=== PATIENT | female | born 1995 | race Caucasian/White ===

== ENCOUNTER 2017-05-18 08:00 | Outpatient (CLI) | payer OTHER | END 2017-05-18 23:59 | disposition home or self-care (01) | LOC: LAB.R 08:00 | PROVIDERS: ATTEND Registered Nurse | DX: Z11.3 Encounter for screening for infections with a predominantly sexual mode of transmission (principal) | CPT/HCPCS: 87491; 87591 ==

== ENCOUNTER 2017-05-24 07:47 | Outpatient (CLI) | payer OTHER ==
--- NOTE | 2017-05-25 13:04 | Ultrasound Report ---
OB ULTRASOUND: 05/24/2017 CLINICAL INDICATION: anatomy. TECHNIQUE: Real-time scanning was performed with inside sales representative static images obtained. LAST MENSTRUAL PERIOD 01/03/2017 Clinical Age 20 weeks 1 day US Age 20 weeks 5 days EFW Hadlock 361 grams EFW% Hadlock 68% Heart Rate 144 bpm EDC 10/10/2017 US EDC 10/06/2017 BPD Hadlock 20 weeks 6 days; Mean mm 49 HC Hadlock 20 weeks 5 days; Mean mm 183 AC Hadlock 20 weeks 3 days; Mean mm 152 FL Hadlock 20 weeks 4 days; Mean mm 44 Presentation cephalic Placental Location posterior R Cervical Length TA 4.4 cm Amniotic Fluid subjectively normal; MVP 4.3 cm FINDINGS: There is a single viable intrauterine gestation, in cephalic presentation. heart rate is 144 BPM. The placenta is posterior, without evidence of previa. Amniotic fluid volume is subjectively normal, with a deepest pocket of 4.3 cm. By size, the fetus measures 20 weeks 5 days (20 weeks 1 day by LMP). The following anatomic structures were visualized and appear normal: The intracranial contents, including the ventricles and posterior fossa; the lips and orbits; the spine; the heart, including 4 chamber view and outflow tracts, and diaphragm; the abdominal contents, including the stomach, the bilateral kidneys, and urinary bladder, as well as a normal 3 vessel cord insertion; 4 limbs. Note is made of bilateral renal pelviectasis, measuring 6 mm on the right and 5 mm on the left. No free fluid or adnexal lesion is appreciated. IMPRESSION: SINGLE VIABLE INTRAUTERINE GESTATION, WITH SIZE IN KEEPING WITH LMP DATING. BILATERAL RENAL PELVIECTASIS. FOLLOWUP IN THE THIRD TRIMESTER IS RECOMMENDED. OTHERWISE, NORMAL ANATOMIC SURVEY. TD: 05/24/2017 11:59 [facility]
== END 2017-05-24 07:48 | disposition home or self-care (01) ==
LOC: DI 07:47
PROVIDERS: ATTEND Registered Nurse
DX: Z34.82 Encounter for supervision of other normal pregnancy, second trimester (principal); O28.3 Abnormal ultrasonic finding on antenatal screening of mother
CPT/HCPCS: 76811

== ENCOUNTER 2017-06-03 07:57 | Outpatient (CLI) | payer OTHER ==
[2017-06-03 08:24] VITALS: BP 102/57
== END 2017-06-03 08:44 | disposition home or self-care (01) ==
LOC: WFO 07:57 → FBP 07:59 → WFO 08:44
PROVIDERS: ATTEND Obstetrics & Gynecology
DX: O36.8120 Decreased fetal movements, second trimester, not applicable or unspecified (principal); Z3A.20 20 weeks gestation of pregnancy
CPT/HCPCS: 99211

== ENCOUNTER 2017-06-04 12:30 | Outpatient (CLI) | payer OTHER | END 2017-06-04 12:31 | disposition home or self-care (01) | LOC: LAB.R 12:30 | PROVIDERS: ATTEND Registered Nurse | DX: O34.62 Maternal care for abnormality of vagina, second trimester (principal) | CPT/HCPCS: 87480; 87491; 87510; 87591; 87660 ==

== ENCOUNTER 2017-06-15 15:00 | Outpatient (CLI) | payer OTHER | END 2017-06-15 15:01 | LOC: LAB.R 15:00 | PROVIDERS: ATTEND Nurse Practitioner Obstetrics & Gynecology | DX: N89.8 Other specified noninflammatory disorders of vagina (principal) | CPT/HCPCS: 87480; 87510; 87660 ==

== ENCOUNTER 2017-06-16 04:27 | Emergency (ER) | payer OTHER ==
[2017-06-16] MEDS ORDERED: SODIUM CHLORIDE 0.9% 1,000 ML IV ONE (05:11)
[2017-06-16] MEDS ORDERED: PROMETHAZINE INJ 25 MG in SODIUM CHLORIDE 0.9% 50 ML IV STA (05:11)
--- NOTE | 2017-06-16 05:16 | ED Physician Documentation ---
PD HPI NVD - Stated complaint Stated Complaint: VOMITING/DIARRHEA - Chief complaint Chief Complaint: General - History obtained from History obtained from: Patient - History of Present Illness Timing - onset: Enter time (99), Today Timing - duration: Hours Timing - details: Abrupt onset, Still present Associated symptoms: No: Abdominal pain Contributing factors: Bad food Improved by: Laying still Similar symptoms before: Diagnosis (hyperemesis) Recently seen: Clinic - Additonal information Additional information: 22-year-old female who is getting routine care and is 23 weeks with her first has had improvement in her morning sickness and she is now developed nausea and vomiting as well as diarrhea. She feels this is probably related to something that she ate but she cannot specifically describe which food she believes may be the culprit. She remembers last eating steak and mashed potatoes. Review of Systems Constitutional: denies: Fever, Chills, Myalgias, Fatigue Eyes: denies: Decreased vision Ears: denies: Ear pain Nose: denies: Rhinorrhea / runny nose, Congestion Throat: denies: Sore throat Cardiac: denies: Chest pain / pressure, Palpitations Respiratory: denies: Dyspnea, Cough GI: reports: Nausea, Vomiting, Diarrhea. denies: Abdominal Pain : denies: Dysuria, Frequency Skin: denies: Rash Musculoskeletal: denies: Neck pain, Back pain, Extremity pain Neurologic: denies: Generalized weakness, Focal weakness, Numbness PD PAST MEDICAL HISTORY - Past Medical History Past Medical History: No - Past Surgical History Past Surgical History: Yes General: Other - Present Medications Home Medications: Ambulatory Orders Medication Instructions Recorded Confirmed Promethazine [Phenergan] 25 - 50 mg PO Q6H PRN #10 tab 06/16/17 - Allergies Allergies/Adverse Reactions: Allergies Allergy/AdvReac Type Severity Reaction Status Date / Time No Known Drug Allergies Allergy Verified 06/16/17 04:40 - Social History Does the pt smoke?: No Smoking Status: Never smoker Does the pt drink ETOH?: No Does the pt have substance abuse?: No - Immunizations Immunizations are current?: Yes - POLST Patient has POLST: No PD ED PE NORMAL - Vitals Vital signs reviewed: Yes (Normal) - General General: Alert and oriented X 3, No acute distress, Well developed/nourished - HEENT HEENT: Atraumatic, PERRL, EOMI - Neck Neck: Supple, no meningeal sign, No bony TTP - Cardiac Cardiac: RRR, No murmur - Respiratory Respiratory: No respiratory distress, Clear bilaterally - Abdomen Abdomen: Soft, Non tender, Other (Gravid uterus above the umbilicus nontender) - Back Back: No CVA TTP, No spinal TTP - Derm Derm: Normal color, Warm and dry, No rash - Extremities Extremities: No deformity, No edema - Neuro Neuro: No motor deficit, No sensory deficit, Normal speech Eye Opening: Spontaneous Motor: Obeys Commands Verbal: Oriented GCS Score: 15 - Psych Psych: Normal mood, Normal affect Results - Vitals Vitals: Oxygen O2 Source Room air - Labs Labs: Laboratory Tests 06/16/17 06/16/17 06/16/17 05:25 05:25 08:54 WBC 15.2 H RBC 3.95 L Hgb 11.7 L Hct 36.0 L MCV 91.1 MCH 29.7 MCHC 32.6 RDW 13.9 Plt Count 178 MPV 10.2 Neut # 13.2 H Lymph # 1.3 L [place] # 0.6 Eos # 0.0 Baso # 0.0 Absolute Nucleated RBC 0.01 Nucleated RBC % 0.0 Sodium 133 L Potassium 3.6 Chloride 107 Carbon Dioxide 20 L Anion Gap 6.0 BUN 7 Creatinine 0.5 Estimated GFR (MDRD) 185 Glucose 90 Calcium 8.5 Total Bilirubin 0.4 AST 29 ALT 24 Alkaline Phosphatase 49 Total Protein 7.2 Albumin 3.2 Globulin 4.0 Albumin/Globulin Ratio 0.8 L Lipase 18 L Urine Color YELLOW Urine Clarity CLEAR Urine pH 8.0 H Ur Specific [place] 1.015 Urine Protein NEGATIVE Urine Glucose (UA) NEGATIVE Urine Ketones NEGATIVE Urine Occult Blood NEGATIVE Urine Nitrite NEGATIVE Urine Bilirubin NEGATIVE Urine Urobilinogen 0.2 (NORMAL) Ur Leukocyte Esterase NEGATIVE Ur Microscopic Review NOT INDICATED Urine Culture Comments NOT INDICATED Procedures - Bedside sono Bedside sono by EMP: With use of bedside ultrasound a castillo fetus with biparietal diameter correlating with 22 weeks 6 days gestation has a heart rate of 156 bpm. - IVC sono (time) 0510 Bedside IVC sono: IVC measures (cm) (1.27), IVC collapsed c insp (cm) (complete) , Dehydration (mild est 1 liter deficit) PD MEDICAL DECISION MAKING - ED course Complexity details: reviewed old records, reviewed results, re-evaluated patient , considered differential, d/w patient Departure - Departure Disposition: 01 Home, Self Care Clinical Impression: Gastroenteritis Condition: Stable Instructions: ED Gastroenteritis Non Infec, ED Gastroenteritis Viral Follow-Up: JUNIT[facility] Napoles [Provider Group] Prescriptions: Promethazine [Phenergan] 25 - 50 mg PO Q6H PRN #10 tab PRN Reason: Nausea / Vomiting Forms: Activity restrictions Discharge Date/Time: 06/16/17 09:51
[2017-06-16 05:46] LABS: BASOPHILS % (AUTO) 0.3 %; EOSINOPHILS % (AUTO) 0.1 %; HGB - HEMOGLOBIN 11.7 g/dL (12.0-16.0); LYMPHOCYTES # (AUTO) 1.3 10^3/uL (1.5-3.5); LYMPHOCYTES % (AUTO) 8.9 %; MEAN CORPUSCULAR HEMOGLOBIN 29.7 pg (27.0-31.0); MEAN CORPUSCULAR HGB CONC 32.6 g/dL (32.0-36.0); MEAN CORPUSCULAR VOLUME 91.1 fL (81.0-99.0); MEAN PLATELET VOLUME 10.2 fL (7.9-10.8); MONOCYTES # (AUTO) 0.6 10^3/uL (0.0-1.0); MONOCYTES % (AUTO) 3.8 %; NEUTROPHILS # (AUTO) 13.2 10^3/uL (1.5-6.6); NEUTROPHILS % (AUTO) 86.9 %; PLT - PLATELET COUNT 178 10^3/uL (130-450); RED BLOOD COUNT 3.95 10^6/uL (4.20-5.40); RED CELL DISTRIBUTION WIDTH 13.9 % (12.0-15.0); WHITE BLOOD COUNT 15.2 x10^3/uL (4.8-10.8)
[2017-06-16 06:05] LABS: ALBUMIN 3.2 g/dL (3.2-5.5); ALBUMIN/GLOBULIN RATIO 0.8 (1.0-2.2); BILIRUBIN,TOTAL 0.4 mg/dL (0.2-1.0); CALCIUM 8.5 mg/dL (8.5-10.3); CREATININE 0.5 mg/dL (0.4-1.0); TOTAL PROTEIN 7.2 g/dL (6.7-8.2)
[2017-06-16 09:09] LABS: BILIRUBIN,URINE NEGATIVE (NEGATIVE); GLUCOSE, URINE (UA) NEGATIVE (NEGATIVE); KETONES,URINE (UA) NEGATIVE (NEGATIVE); LEUKOCYTE ESTERASE, URINE NEGATIVE (NEGATIVE); NITRITE,URINE NEGATIVE (NEGATIVE); OCCULT BLOOD,URINE NEGATIVE (NEGATIVE); PROTEIN,URINE NEGATIVE (NEGATIVE); UROBILINOGEN,URINE 0.2 (NORMAL) E.U./dL (NORMAL)
[2017-06-16 09:10] LABS: CLARITY,URINE CLEAR (CLEAR)
[2017-06-16 09:43] VITALS: BP 108/63
--- NOTE | 2017-06-16 09:44 | ED Physician Documentation ---
ED Addendum - Addendum Addendum: 06/16/17 09:43 pt seen and evaluated by Dr Paul and was written for dc if UA neg UA neg pt requested note for work which i provided
== END 2017-06-16 09:51 | disposition home or self-care (01) ==
LOC: ED 04:27
DX: O99.612 Diseases of the digestive system complicating pregnancy, second trimester (principal); K52.9 Noninfective gastroenteritis and colitis, unspecified; Z3A.23 23 weeks gestation of pregnancy
CPT/HCPCS: 36415; 80053; 81003; 83690; 85025; 96361; 96365; 99283; J7040; 81001; 87086

== ENCOUNTER 2017-06-17 13:35 | Emergency (ER) | payer OTHER ==
[2017-06-17] MEDS ORDERED: ONDANSETRON 4 MG/2 ML VIAL IVP STA (15:06)
[2017-06-17] MEDS ORDERED: SODIUM CHLORIDE 0.9% 1,000 ML IV ONE (15:06)
[2017-06-17 15:37] LABS: BASOPHILS # (AUTO) 0.1 10^3/uL (0.0-0.1); BASOPHILS % (AUTO) 0.5 %; EOSINOPHILS # (AUTO) 0.1 10^3/uL (0.0-0.7); EOSINOPHILS % (AUTO) 0.4 %; LYMPHOCYTES # (AUTO) 1.2 10^3/uL (1.5-3.5); LYMPHOCYTES % (AUTO) 9.6 %; MEAN CORPUSCULAR HEMOGLOBIN 30.5 pg (27.0-31.0); MEAN CORPUSCULAR VOLUME 92.4 fL (81.0-99.0); MEAN PLATELET VOLUME 9.9 fL (7.9-10.8); MONOCYTES # (AUTO) 0.6 10^3/uL (0.0-1.0); MONOCYTES % (AUTO) 5.1 %; NEUTROPHILS # (AUTO) 10.7 10^3/uL (1.5-6.6); NEUTROPHILS % (AUTO) 84.4 %; PLT - PLATELET COUNT 172 10^3/uL (130-450); RED BLOOD COUNT 3.92 10^6/uL (4.20-5.40); RED CELL DISTRIBUTION WIDTH 14.1 % (12.0-15.0); WHITE BLOOD COUNT 12.7 x10^3/uL (4.8-10.8)
[2017-06-17 15:59] LABS: ALBUMIN 3.1 g/dL (3.2-5.5); ALBUMIN/GLOBULIN RATIO 0.8 (1.0-2.2); BILIRUBIN,TOTAL 0.3 mg/dL (0.2-1.0); CREATININE 0.5 mg/dL (0.4-1.0)
[2017-06-17 16:16] VITALS: BP 112/64
[2017-06-17 16:21] LABS: BILIRUBIN,URINE NEGATIVE (NEGATIVE); GLUCOSE, URINE (UA) NEGATIVE (NEGATIVE); KETONES,URINE (UA) TRACE mg/dL (NEGATIVE); LEUKOCYTE ESTERASE, URINE NEGATIVE (NEGATIVE); NITRITE,URINE NEGATIVE (NEGATIVE); OCCULT BLOOD,URINE NEGATIVE (NEGATIVE); PH,URINE 5.5 PH (5.0-7.5); PROTEIN,URINE NEGATIVE (NEGATIVE); UROBILINOGEN,URINE 0.2 (NORMAL) E.U./dL (NORMAL)
[2017-06-17 16:22] LABS: CLARITY,URINE CLEAR (CLEAR)
--- NOTE | 2017-06-17 17:09 | ED Physician Documentation ---
PD HPI NVD - Stated complaint Stated Complaint: VOMITTING,DIARRHEA - Chief complaint Chief Complaint: Abd Pain - History obtained from History obtained from: Patient - History of Present Illness Timing - onset: Yesterday Timing - details: Intermittant Contributing factors: Other ( at 23 weeks gestation.) Recently seen: Emergency Dept (Yesterday.) - Additonal information Additional information: The patient is a 22-year-old female, currently at 23 weeks gestation, who presents with vomiting and diarrhea. Her symptoms started yesterday, and she was seen here at that time and treated with IV fluids and antiemetics, and was diagnosed with gastroenteritis. She returns today because of recurrent symptoms. She denies abdominal pain, fever, dysuria, or vaginal bleeding. She denies any recent travel or food that has been different from usual. No other family members are ill. Review of Systems Constitutional: denies: Fever Ears: denies: Tinnitus/ringing Nose: denies: Congestion Throat: denies: Sore throat Cardiac: denies: Chest pain / pressure Respiratory: denies: Dyspnea, Cough GI: reports: Vomiting, Diarrhea. denies: Abdominal Pain : reports: Now EGA (23 weeks gestation.). denies: Dysuria, Vaginal bleeding Skin: denies: Rash Musculoskeletal: denies: Back pain, Extremity swelling Neurologic: denies: Headache PD PAST MEDICAL HISTORY - Past Medical History Cardiovascular: None Respiratory: None Neuro: None Endocrine/Autoimmune: None - Past Surgical History Past Surgical History: Yes General: Other - Present Medications Home Medications: Ambulatory Orders Medication Instructions Recorded Confirmed Promethazine [Phenergan] 25 - 50 mg PO Q6H PRN #10 tab 06/16/17 - Allergies Allergies/Adverse Reactions: Allergies Allergy/AdvReac Type Severity Reaction Status Date / Time No Known Drug Allergies Allergy Verified 06/16/17 04:40 - Social History Does the pt smoke?: No Smoking Status: Never smoker Does the pt drink ETOH?: No Does the pt have substance abuse?: No - Immunizations Immunizations are current?: Yes - POLST Patient has POLST: No PD ED PE NORMAL - Vitals Vital signs reviewed: Yes (normal) - General General: Alert and oriented X 3, Well developed/nourished - HEENT HEENT: Atraumatic, Moist mucous membranes, Pharynx benign - Neck Neck: Supple, no meningeal sign, No adenopathy - Cardiac Cardiac: RRR, No murmur - Respiratory Respiratory: No respiratory distress, Clear bilaterally - Abdomen Abdomen: Soft, Non tender, Other (Gravid uterus with fundal height consistent with dates.) - Back Back: No CVA TTP - Derm Derm: No rash - Extremities Extremities: No edema, No calf tenderness / cord - Neuro Neuro: Alert and oriented X 3, No motor deficit, No sensory deficit Results - Vitals Vitals: Oxygen O2 Source Room air - Labs Labs: Laboratory Tests 06/17/17 06/17/17 06/17/17 14:25 15:20 15:20 WBC 12.7 H RBC 3.92 L Hgb 12.0 Hct 36.2 L MCV 92.4 MCH 30.5 MCHC 33.0 RDW 14.1 Plt Count 172 MPV 9.9 Neut # 10.7 H Lymph # 1.2 L [place] # 0.6 Eos # 0.1 Baso # 0.1 Absolute Nucleated RBC 0.00 Nucleated RBC % 0.0 Sodium 134 L Potassium 3.4 L Chloride 105 Carbon Dioxide 22 Anion Gap 7.0 BUN 7 Creatinine 0.5 Estimated GFR (MDRD) 185 Glucose 91 Calcium 9.0 Total Bilirubin 0.3 AST 26 ALT 28 Alkaline Phosphatase 53 Total Protein 7.0 Albumin 3.1 L Globulin 3.9 Albumin/Globulin Ratio 0.8 L Lipase 24 Urine Color YELLOW Urine Clarity CLEAR Urine pH 5.5 Ur Specific [place] 1.025 Urine Protein NEGATIVE Urine Glucose (UA) NEGATIVE Urine Ketones [place]ACE Urine Occult Blood NEGATIVE Urine Nitrite NEGATIVE Urine Bilirubin NEGATIVE Urine Urobilinogen 0.2 (NORMAL) Ur Leukocyte Esterase NEGATIVE Ur Microscopic Review NOT INDICATED Urine Culture Comments NOT INDICATED PD MEDICAL DECISION MAKING - ED course Complexity details: reviewed old records, reviewed results, re-evaluated patient , considered differential, d/w patient ED course: The patient's presentation is most consistent with gastroenteritis, most likely of a viral etiology. She has no abdominal pain or tenderness, no fever, and no dysuria. CBC, chemistry panel, and urinalysis are normal except for mildly elevated white blood cell count of 12.7, which is improved from white blood cell count yesterday of 15.2. Treatment in the emergency department included administration of normal saline 1 L IV, and ondansetron 4 mg IV. She had no further episodes of vomiting or diarrhea while in the emergency department, and felt subjectively improved. She demonstrated ability to drink fluids without recurrent nausea. She has a prescription for Phenergan was written yesterday. I discussed with her symptomatic treatment, outpatient follow-up, as well as potentially worrisome signs or symptoms that should prompt reevaluation in the emergency department. Departure - Departure Disposition: 01 Home, Self Care Clinical Impression: Gastroenteritis Vomiting Qualifiers: Vomiting type: unspecified Vomiting Intractability: non-intractable Nausea presence: with nausea Qualified Code(s): R11.2 - Nausea with vomiting, unspecified Diarrhea Qualifiers: Diarrhea type: unspecified type Qualified Code(s): R19.7 - Diarrhea, unspecified Qualifiers: Weeks of gestation: 23 weeks Qualified Code(s): Z3A.23 - 23 weeks gestation of Condition: Stable Instructions: ED Gastroenteritis Viral Follow-Up: JUNITO Napoles [Provider Group] Comments: Drink plenty of fluids. Use Phenergan as previously prescribed if needed for nausea. Follow up with your pre owned sales manager as planned. Return to the emergency department if you develop increasing abdominal pain, persistent vomiting, or otherwise worsening symptoms. Forms: Activity restrictions Discharge Date/Time: 06/17/17 17:16
== END 2017-06-17 17:16 | disposition home or self-care (01) ==
LOC: ED 13:35
DX: O99.612 Diseases of the digestive system complicating pregnancy, second trimester (principal); K52.9 Noninfective gastroenteritis and colitis, unspecified; Z3A.23 23 weeks gestation of pregnancy
CPT/HCPCS: 36415; 80053; 81001; 81003; 83690; 85025; 87086; 96361; 96374; 99283; 99284

== ENCOUNTER 2017-07-09 04:00 | Outpatient (CLI) | payer OTHER ==
[2017-07-09 04:23] VITALS: BP 118/81
== END 2017-07-09 04:30 | disposition other institution (70) ==
LOC: WFO 04:00 → FBP 04:01 → WFO 04:30
PROVIDERS: ATTEND Obstetrics & Gynecology
DX: O99.89 Other specified diseases and conditions complicating pregnancy, childbirth and the puerperium (principal); R06.02 Shortness of breath; R00.1 Bradycardia, unspecified; O36.8120 Decreased fetal movements, second trimester, not applicable or unspecified; Z3A.25 25 weeks gestation of pregnancy
CPT/HCPCS: 99212

== ENCOUNTER 2017-07-09 04:32 | Emergency (ER) | payer OTHER ==
[2017-07-09] MEDS ORDERED: SODIUM CHLORIDE INHALATION 3 ML NEB INH STA (04:51)
--- NOTE | 2017-07-09 05:23 | ED Physician Documentation ---
PD HPI DYSPNEA - Stated complaint Stated Complaint: SOA - Chief complaint Chief Complaint: Resp - History obtained from History obtained from: Patient - History of Present Illness Timing - onset: How many weeks ago (1) Timing - onset during: Sleep, Rest, Light activity, Exertion Timing - details: Intermittant, Waxing and waning Worsened by: Exertion, Laying flat Associated symptoms: No: Fever, Cough, Hemoptysis, Wheezing, Chest pain / discomfort, Bilateral edema Similar symptoms before: Has not had sx before Recently seen: Not recently seen - Additional information Additional information: Patient is a 22 year old approximately 26 weeks by dates who is presenting to the emergency department for shortness of breath. patient states that for the last week or so patient will intermittently get short of breath with exertion or sometimes when she lies down. Patient denies nausea, vomiting fevers, cough, chest pain, wheezing, vaginal bleeding or vaginal discharge. Patient was evaluated by ob prior to being seen in the emergency department. Review of Systems Ten Systems: 10 systems reviewed and negative Cardiac: denies: Chest pain / pressure, Palpitations, Pedal edema, Calf pain Respiratory: reports: Dyspnea. denies: Cough, Hemoptysis, Wheezing PD PAST MEDICAL HISTORY - Past Medical History Past Medical History: No Cardiovascular: None Respiratory: None Neuro: None Endocrine/Autoimmune: None - Past Surgical History Past Surgical History: Yes General: Other - Present Medications Home Medications: Ambulatory Orders Medication Instructions Recorded Confirmed Pnv95/Ferrous Fumarate/FA 1 tab PO DAILY 07/09/17 07/09/17 [ Formula Tablet] - Allergies Allergies/Adverse Reactions: Allergies Allergy/AdvReac Type Severity Reaction Status Date / Time No Known Drug Allergies Allergy Verified 07/09/17 04:36 - Social History Does the pt smoke?: No Smoking Status: Never smoker Does the pt drink ETOH?: No Does the pt have substance abuse?: No - Immunizations Immunizations are current?: Yes - POLST Patient has POLST: No PD ED PE NORMAL - Vitals Vital signs reviewed: Yes - General General: Alert and oriented X 3, No acute distress - HEENT HEENT: Atraumatic, PERRL - Neck Neck: Supple, no meningeal sign, No JVD - Cardiac Cardiac: RRR, No murmur - Respiratory Respiratory: No respiratory distress, Clear bilaterally - Derm Derm: Normal color, Warm and dry - Extremities Extremities: No deformity, No calf tenderness / cord - Neuro Neuro: Alert and oriented X 3 Eye Opening: Spontaneous Motor: Obeys Commands Verbal: Oriented GCS Score: 15 - Psych Psych: Normal mood Results - Vitals Vitals: Vital Signs - 24 hr 07/09/17 07/09/17 04:34 05:01 Temperature 36.3 C L Heart Rate 91 65 Respiratory 18 12 Rate Blood Pressure 114/75 O2 Saturation 100 Oxygen O2 Source Room air PD MEDICAL DECISION MAKING - ED course Complexity details: reviewed old records, re-evaluated patient, considered differential, d/w patient ED course: Patient was seen and examined at bedside. Patient was well appearing and in no acute distress. patient was treated with a saline nebulizer with mild relief. A discussion was had with the patient concerning imaging and treatment. Patient 's symptoms were likely secondary to smaller long volumes as patient was well appearing with normal vital signs and in no distress. It was decided to hold off on imaging at this time. patient was given detailed discharge and follow up instructions and was stable for discharge with outpatient follow up. Departure - Departure Disposition: 01 Home, Self Care Clinical Impression: , Dyspnea Condition: Good Instructions: ED Dyspnea Shortness of Breath Follow-Up: primary,care provider [Other] - Within 3 Days Comments: Your symptoms are likely a side effect of your . You will have smaller lung volumes as your fetus gets larger. You can try sleeping propped up some pillows. You should follow up with your doctor if the symptoms persist. You may return to the emergency department at any time for new, worsening or uncontrollable symptoms. Forms: Activity restrictions
[2017-07-09 05:49] VITALS: BP 124/71
== END 2017-07-09 05:49 | disposition home or self-care (01) ==
LOC: ED 04:32
DX: O99.512 Diseases of the respiratory system complicating pregnancy, second trimester (principal); R06.02 Shortness of breath; Z3A.26 26 weeks gestation of pregnancy
CPT/HCPCS: 94640; 99283

== ENCOUNTER 2017-07-14 22:01 | Emergency (ER) | payer OTHER ==
[2017-07-14 22:14] VITALS: BP 111/70
[2017-07-14] MEDS ORDERED: BUFFERED LIDOCAINE 10 ML SYRINGE SUBQ STA (22:26)
--- NOTE | 2017-07-14 22:27 | ED Physician Documentation ---
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 cut the dorsum of her dominant, right index finger while opening a food can at home just prior to arrival.) Review of Systems Constitutional: reports: Reviewed and negative Cardiac: reports: Reviewed and negative Respiratory: reports: Reviewed and negative PD PAST MEDICAL HISTORY - Past Medical History Cardiovascular: None Respiratory: None Endocrine/Autoimmune: None - Past Surgical History Past Surgical History: Yes General: Other - Present Medications Home Medications: Ambulatory Orders Medication Instructions Recorded Confirmed Pnv95/Ferrous Fumarate/FA 1 tab PO DAILY 07/09/17 07/09/17 [ Formula Tablet] - Allergies Allergies/Adverse Reactions: Allergies Allergy/AdvReac Type Severity Reaction Status Date / Time No Known Drug Allergies Allergy Verified 07/14/17 22:14 - Social History Does the pt smoke?: No Smoking Status: Never smoker Does the pt drink ETOH?: No Does the pt have substance abuse?: No - Immunizations Immunizations are current?: Yes - POLST Patient has POLST: No PD ED PE NORMAL - Vitals Vital signs reviewed: Yes - General General: Alert and oriented X 3, No acute distress - Cardiac Cardiac: Other (regularly irregular with extrasystoles.) - Extremities Extremities: Other (On the dorsum of the right index finger at the level of the DIP there is a 1 cm oval like but mostly horizontal laceration with normal distal neurovascular status.) - Neuro Neuro: Alert and oriented X 3, Normal speech Results - Vitals Vitals: Vital Signs - 24 hr 07/14/17 07/14/17 22:10 22:59 Temperature 36.0 C L Heart Rate 84 47 L Respiratory 18 16 Rate Blood Pressure 111/70 O2 Saturation 99 98 Oxygen O2 Source Room air - EKG (time done) 2257 Rate: Rate (enter#) (87) Rhythm: NSR (with q4th beat PVCs) [place]: Normal Intervals: Normal [place] QRS: Normal Ischemia: Normal ST segments Computer interpretation: Agree with computer Procedures - Laceration (location) R 2nd finger Length in cm: 1 Wound type: Linear Neurovascular status: Sensory intact, Motor intact, Vascular intact Anesthesia: Lidocaine 1%, With bicarb Wound Preparation: Betadine, Irrigated copiously NS Skin layer closure: Nylon, Interrupted, Size #-0 - enter number (5-0), Sutures - enter # (3) Other: Patient tolerated well, No complications, Neurovascular intact, Tetanus UTD Complexity: Simple PD MEDICAL DECISION MAKING - ED course ED course: 22-year-old with laceration to the index finger. This was sutured and tetanus is up-to-date. She had ancillary complaint of ongoing dyspnea and palpitations and on examination she certainly has a lot of ectopy corroborated by EKG. Case discussed by phone with on-call OB, Dr. Alysha Kilgore and we agree this is probably a benign process. Departure - Departure Disposition: 01 Home, Self Care Clinical Impression: Finger laceration Condition: Good Record reviewed to determine appropriate education?: Yes Instructions: ED Laceration Hand Comments: Come back for any signs of infection which would include: Redness, swelling, drainage, increased pain, or fevers. Follow-up with your physician in 10-14 days for suture removal.
== END 2017-07-14 23:30 | disposition home or self-care (01) ==
LOC: ED 22:01
DX: S61.210A Laceration without foreign body of right index finger without damage to nail, initial encounter (principal); W26.8XXA Contact with other sharp object(s), not elsewhere classified, initial encounter; I49.49 Other premature depolarization
CPT/HCPCS: 12001; 93005; 99283; 99284

== ENCOUNTER 2017-07-16 07:21 | Outpatient (CLI) | payer OTHER ==
[2017-07-16 07:51] VITALS: BP 125/81
== END 2017-07-16 09:40 | disposition home or self-care (01) ==
LOC: WFO 07:21 → FBP 07:22 → WFO 09:40
PROVIDERS: ATTEND Nurse Practitioner Obstetrics & Gynecology
DX: O47.03 False labor before 37 completed weeks of gestation, third trimester (principal); Z3A.26 26 weeks gestation of pregnancy
CPT/HCPCS: 99212

== ENCOUNTER 2017-07-18 17:32 | Outpatient (CLI) | payer OTHER ==
[2017-07-18 17:52] LABS: BASOPHILS # (AUTO) 0.1 10^3/uL (0.0-0.1); BASOPHILS % (AUTO) 0.4 %; EOSINOPHILS # (AUTO) 0.1 10^3/uL (0.0-0.7); EOSINOPHILS % (AUTO) 0.8 %; HGB - HEMOGLOBIN 11.8 g/dL (12.0-16.0); LYMPHOCYTES # (AUTO) 1.4 10^3/uL (1.5-3.5); LYMPHOCYTES % (AUTO) 10.1 %; MEAN CORPUSCULAR HEMOGLOBIN 30.6 pg (27.0-31.0); MEAN CORPUSCULAR HGB CONC 33.2 g/dL (32.0-36.0); MEAN CORPUSCULAR VOLUME 92.2 fL (81.0-99.0); MEAN PLATELET VOLUME 9.8 fL (7.9-10.8); MONOCYTES # (AUTO) 0.8 10^3/uL (0.0-1.0); MONOCYTES % (AUTO) 5.9 %; NEUTROPHILS # (AUTO) 11.6 10^3/uL (1.5-6.6); NEUTROPHILS % (AUTO) 82.8 %; PLT - PLATELET COUNT 190 10^3/uL (130-450); RED BLOOD COUNT 3.86 10^6/uL (4.20-5.40); WHITE BLOOD COUNT 14.1 x10^3/uL (4.8-10.8)
== END 2017-07-18 17:33 | disposition home or self-care (01) ==
LOC: LAB 17:32
PROVIDERS: ATTEND Registered Nurse
DX: Z34.82 Encounter for supervision of other normal pregnancy, second trimester (principal)
CPT/HCPCS: 36415; 85025; 86850

== ENCOUNTER 2017-07-23 08:38 | Outpatient (CLI) | payer OTHER | END 2017-07-23 08:39 | disposition home or self-care (01) | LOC: LAB 08:38 | PROVIDERS: ATTEND Registered Nurse | DX: Z34.82 Encounter for supervision of other normal pregnancy, second trimester (principal) | CPT/HCPCS: 36415; 82950 ==

== ENCOUNTER 2017-07-27 08:00 | Outpatient (CLI) | payer OTHER | END 2017-07-27 08:01 | disposition home or self-care (01) | LOC: LAB.R 08:00 | PROVIDERS: ATTEND Nurse Practitioner Obstetrics & Gynecology | DX: N89.8 Other specified noninflammatory disorders of vagina (principal) | CPT/HCPCS: 87480; 87510; 87660 ==

== ENCOUNTER 2017-07-29 08:19 | Outpatient (CLI) | payer OTHER ==
[2017-07-29 09:19] VITALS: BP 117/70
== END 2017-07-29 09:15 | disposition home or self-care (01) ==
LOC: WFO 08:19 → FBP 08:21 → WFO 09:15
PROVIDERS: ATTEND Registered Nurse
DX: O36.8190 Decreased fetal movements, unspecified trimester, not applicable or unspecified (principal)
CPT/HCPCS: 99211

== ENCOUNTER 2017-08-02 13:09 | Outpatient (CLI) | payer OTHER ==
[2017-08-02 13:40] VITALS: BP 117/76
[2017-08-02 13:52] LABS: BILIRUBIN,URINE NEGATIVE (NEGATIVE); GLUCOSE, URINE (UA) NEGATIVE (NEGATIVE); KETONES,URINE (UA) NEGATIVE (NEGATIVE); LEUKOCYTE ESTERASE, URINE NEGATIVE (NEGATIVE); NITRITE,URINE NEGATIVE (NEGATIVE); OCCULT BLOOD,URINE NEGATIVE (NEGATIVE); PROTEIN,URINE NEGATIVE (NEGATIVE); UROBILINOGEN,URINE 0.2 (NORMAL) E.U./dL (NORMAL)
[2017-08-02 13:53] LABS: CLARITY,URINE CLEAR (CLEAR)
== END 2017-08-02 13:55 | disposition home or self-care (01) ==
LOC: WFO 13:09 → FBP 13:11 → WFO 13:55
PROVIDERS: ATTEND Registered Nurse
DX: O36.8130 Decreased fetal movements, third trimester, not applicable or unspecified (principal); Z3A.29 29 weeks gestation of pregnancy
CPT/HCPCS: 59025; 81001; 81003; 87086

== ENCOUNTER 2017-08-02 13:58 | Emergency (ER) | payer OTHER ==
--- NOTE | 2017-08-02 14:12 | ED Physician Documentation ---
PD HPI WOUND RECHECK - Stated complaint Stated Complaint: STITCH REMOVAL - Histroy obtained from History obtained from: Patient - History of Present Illness Location: Other (She is about 20 days out from a suture repair of the laceration on the right index finger without complication and she is here simply for suture removal. She has no specific complaints or signs of infection.) PD PAST MEDICAL HISTORY - Past Medical History Cardiovascular: None Respiratory: None Endocrine/Autoimmune: None - Past Surgical History Past Surgical History: Yes General: Other - Present Medications Home Medications: Ambulatory Orders Medication Instructions Recorded Confirmed Pnv95/Ferrous Fumarate/FA 1 tab PO DAILY 07/09/17 07/09/17 [ Formula Tablet] - Allergies Allergies/Adverse Reactions: Allergies Allergy/AdvReac Type Severity Reaction Status Date / Time No Known Drug Allergies Allergy Verified 08/02/17 14:10 - Social History Does the pt smoke?: No Smoking Status: Never smoker Does the pt drink ETOH?: No Does the pt have substance abuse?: No - Immunizations Immunizations are current?: Yes - POLST Patient has POLST: No PD ED PE NORMAL - Vitals Vital signs reviewed: Yes - General General: Alert and oriented X 3, No acute distress - Extremities Extremities: Other (There is a 1 cm laceration over the dorsum of the right index finger the level of the DIP with [address] and removed during exam without issue. Good strength and extension.) - Neuro Neuro: Alert and oriented X 3, Normal speech Results - Vitals Vitals: Oxygen O2 Source Room air Departure - Departure Disposition: 01 Home, Self Care Clinical Impression: Visit for suture removal Condition: Stable
[2017-08-02 14:13] VITALS: BP 118/77
== END 2017-08-02 14:14 | disposition home or self-care (01) ==
LOC: ED 13:58
DX: S61.210D Laceration without foreign body of right index finger without damage to nail, subsequent encounter (principal); W45.8XXD Other foreign body or object entering through skin, subsequent encounter; O36.8131 Decreased fetal movements, third trimester, fetus 1; Z3A.29 29 weeks gestation of pregnancy
CPT/HCPCS: 59025; 81001; 81003; 87086; 99281; 99282

== ENCOUNTER 2017-08-03 08:00 | Outpatient (CLI) | payer OTHER | END 2017-08-03 08:01 | disposition home or self-care (01) | LOC: LAB.R 08:00 | PROVIDERS: ATTEND Nurse Practitioner Obstetrics & Gynecology | DX: R82.99 Other abnormal findings in urine (principal) | CPT/HCPCS: 87086 ==

== ENCOUNTER 2017-08-23 09:05 | Outpatient (CLI) | END 2017-08-23 09:06 | disposition home or self-care (01) ==

== ENCOUNTER 2017-09-05 20:56 | Outpatient (CLI) | payer OTHER ==
[2017-09-05 21:38] VITALS: BP 110/70
== END 2017-09-05 22:00 | disposition home or self-care (01) ==
LOC: WFO 20:56 → FBP 21:20 → WFO 22:00
PROVIDERS: ATTEND Registered Nurse
DX: O47.03 False labor before 37 completed weeks of gestation, third trimester (principal); Z3A.34 34 weeks gestation of pregnancy
CPT/HCPCS: 99212

== ENCOUNTER 2017-09-13 10:12 | Outpatient (CLI) | payer OTHER ==
--- NOTE | 2017-09-13 16:19 | Ultrasound Report ---
Procedure Date: 09/13/2017 Accession Number: [id number] / [id number] Procedure: US - OB F/U or Repeat CPT Code: FULL RESULT: EXAM: OB F/U or Repeat DATE: 09/13/2017 12:51 PM CLINICAL HISTORY: ABNORMAL US FINDING ON SCREENING OF MOTH TECHNIQUE: Real-time scanning was performed with health and safety representative static images obtained. COMPARISON: None LAST MENSTRUAL PERIOD: 01/03/2017 Clinical Age: 36 weeks 5 days US Age: 37 weeks 1 days EFW Hadlock: 2912 grams EFW % Hadlock: 44% Heart Rate: 148 bpm EDC: 10/06/2017 US EDC: 10/03/2017 BPD Hadlock: 38 weeks 1 days; Mean mm 94 HC Hadlock: 38 weeks 6 days; Mean mm 338 AC Hadlock: 35 weeks 5 days; Mean mm 318 FL Hadlock: 36 weeks 0 days; Mean mm 70 Presentation: Cephalic Placental Location: Posterior Cervical Length: 3.8 cm Amniotic Fluid: JOEY 10.6 cm; MVP 4.1 cm FINDINGS: There is a single viable intrauterine gestation with a posterior placenta in cephalic presentation without evidence of previa. Today's ultrasound age is 37 weeks and 1 day compared to previous measurements of 34 weeks and 3 days on 08/23/2017. IMPRESSION: Single viable intrauterine gestation with sonographic age of 37 weeks and 1 day compared to a previous sonographic age of 34 weeks and 3 days on 08/23/2017.
== END 2017-09-13 10:13 | disposition home or self-care (01) ==
LOC: DI 10:12
PROVIDERS: ATTEND Nurse Practitioner Obstetrics & Gynecology
DX: O28.3 Abnormal ultrasonic finding on antenatal screening of mother (principal)
CPT/HCPCS: 76816

== ENCOUNTER 2017-09-21 08:00 | Outpatient (CLI) | payer OTHER | END 2017-09-21 08:01 | disposition home or self-care (01) | LOC: LAB.R 08:00 | PROVIDERS: ATTEND Registered Nurse | DX: Z34.83 Encounter for supervision of other normal pregnancy, third trimester (principal) | CPT/HCPCS: 87081 ==

== ENCOUNTER 2017-09-24 06:59 | Outpatient (CLI) | payer OTHER ==
[2017-09-24 07:19] VITALS: BP 126/74
== END 2017-09-24 07:35 | disposition home or self-care (01) ==
LOC: WFO 06:59 → FBP 07:00 → WFO 07:35
PROVIDERS: ATTEND Nurse Practitioner Obstetrics & Gynecology
DX: O9A.213 Injury, poisoning and certain other consequences of external causes complicating pregnancy, third trimester (principal); Z3A.36 36 weeks gestation of pregnancy
CPT/HCPCS: 99213

== ENCOUNTER 2017-09-24 07:38 | Emergency (ER) | payer OTHER ==
[2017-09-24 07:53] VITALS: BP 128/60
[2017-09-24] MEDS ORDERED: ACETAMINOPHEN 325 MG TABLET PO STA (09:30)
--- NOTE | 2017-09-24 09:32 | ED Physician Documentation ---
PD HPI LOWER EXT INJURY - Stated complaint Stated Complaint: KNEE PX/BOTH KNEES - Chief complaint Chief Complaint: Ext Problem - History obtained from History obtained from: Patient - History of Present Illness PD HPI LOW EXT INJURY LOCATION: Both, Knee Type of injury: Fall Where injury occurred: Home Timing - onset: Last night Worsened by: Moving, Palpating Contributing factors: Other ( at 36 weeks gestation.) Similar symptoms before: Has not had sx before - Additional information Additional information: The patient is a 22-year-old female who is currently at 36 weeks gestation, who presents with pain in both knees. She fell while walking up the stairs in her house last night, impacting her knees on the step. She initially did not have any discomfort, and has been ambulatory since the incident occurred. She presents now because of pain in the infrapatellar regions of both knees. She denies any other injuries. She was evaluated in OB prior to coming to the emergency department, and had a normal OB evaluation. Review of Systems Constitutional: denies: Fever Nose: denies: Congestion Cardiac: denies: Chest pain / pressure Respiratory: denies: Dyspnea GI: denies: Abdominal Pain, Nausea, Vomiting : denies: Dysuria Skin: denies: Rash, Abrasion (s) Musculoskeletal: reports: Joint pain (knees bilaterally). denies: Neck pain, Back pain Neurologic: denies: Focal weakness, Numbness, Headache, Head injury PD PAST MEDICAL HISTORY - Past Medical History Cardiovascular: None Respiratory: None Endocrine/Autoimmune: None - Past Surgical History Past Surgical History: Yes General: Other - Present Medications Home Medications: Ambulatory Orders Medication Instructions Recorded Confirmed Pnv95/Ferrous Fumarate/FA 1 tab PO DAILY 07/09/17 09/24/17 [ Formula Tablet] - Allergies Allergies/Adverse Reactions: Allergies Allergy/AdvReac Type Severity Reaction Status Date / Time No Known Drug Allergies Allergy Verified 09/24/17 07:53 - Social History Does the pt smoke?: No Smoking Status: Never smoker Does the pt drink ETOH?: No Does the pt have substance abuse?: No - Immunizations Immunizations are current?: Yes - POLST Patient has POLST: No PD ED PE NORMAL - Vitals Vital signs reviewed: Yes (normal) - General General: Alert and oriented X 3, Well developed/nourished - HEENT HEENT: Atraumatic - Neck Neck: No bony TTP - Respiratory Respiratory: No respiratory distress - Abdomen Abdomen: Non tender, Other (Gravid, consistent with dates.) - Back Back: No spinal TTP - Derm Derm: No rash - Extremities Extremities: No edema, No calf tenderness / cord, Other (There is mild tenderness to palpation in the infrapatellar regions of her knees bilaterally. There is no swelling, erythema, ecchymosis, or break in the integument. There is no tenderness to palpation in the popliteal fossae, or along the joint lines. She is able to extend her knees fully and can flex to 90, although flexion exacerbates her discomfort. Distal neurovascular is intact.) - Neuro Neuro: Alert and oriented X 3, No motor deficit, No sensory deficit Results - Vitals Vitals: Oxygen O2 Source Room air PD MEDICAL DECISION MAKING - ED course Complexity details: considered differential, d/w patient ED course: The patient's presentation is significant for fall with contusions to her knees bilaterally. There is no clinical indication for radiographic imaging. At 36 weeks gestation, she was evaluated in OB prior to evaluation in the emergency department, and there is no apparent impairment. Acetaminophen, 650 mg is administered orally. I discussed with her the expected course of injury, symptomatic treatment and outpatient follow-up, as well as potentially worrisome signs or symptoms that should prompt reevaluation in the emergency department. - Sepsis Event Vital Signs: Oxygen O2 Source Room air Departure - Departure Disposition: 01 Home, Self Care Clinical Impression: Contusion of knee Qualifiers: Weeks of gestation: 36 weeks Qualified Code(s): Z3A.36 - 36 weeks gestation of Condition: Stable Instructions: ED Contusion Lower Ext Follow-Up: JUNIT[facility] Napoles [Provider Group] Comments: Use Tylenol as needed for pain or discomfort. Let pain be her guide to activity level. Follow up with your diamond cutter as planned. Return to the emergency [place] if you develop increasing pain, swelling, or otherwise worsening symptoms. Discharge Date/Time: 09/24/17 09:50
== END 2017-09-24 09:50 | disposition home or self-care (01) ==
LOC: ED 07:38
DX: O9A.213 Injury, poisoning and certain other consequences of external causes complicating pregnancy, third trimester (principal); S80.02XA Contusion of left knee, initial encounter; S80.01XA Contusion of right knee, initial encounter; W01.198A Fall on same level from slipping, tripping and stumbling with subsequent striking against other object, initial encounter; Y93.01 Activity, walking, marching and hiking; Y92.009 Unspecified place in unspecified non-institutional (private) residence as the place of occurrence of the external cause; Z3A.36 36 weeks gestation of pregnancy
CPT/HCPCS: 99213; 99282; 99283; A9270

== ENCOUNTER 2017-10-08 07:04 | Emergency (ER) | payer OTHER ==
[2017-10-08 07:10] VITALS: BP 128/58
[2017-10-08] MEDS ORDERED: ERYTHROMYCIN OPHTH OINT 1 GM TUBE LEFTEYE STA (07:31)
--- NOTE | 2017-10-08 07:35 | ED Physician Documentation ---
PD HPI OPHTHO - Stated complaint Stated Complaint: LT EYE SWELLING - Chief complaint Chief Complaint: Heent - History obtained from History obtained from: Patient - History of Present Illness Timing - onset: How many days ago (3) Timing - duration: Days Timing - details: Gradual onset Location: Left Associated symptoms: Swelling, Tearing Similar symptoms before: No diagnosis - Additional information Additional information: The patient is a 22-year-old female who presents with swelling of her left upper eyelid. It has been increasing gradually over the past 3 days. She reports tearing of her left eye, but otherwise no visual change. She has a history of similar symptoms occasionally in the past, but it is never become the swollen. She does not wear corrective lenses. She is currently at 39 weeks gestation. Review of Systems Constitutional: denies: Fever Eyes: reports: Irritation. denies: Decreased vision Nose: denies: Congestion Throat: denies: Sore throat Respiratory: denies: Cough GI: denies: Abdominal Pain : reports: Now EGA (39 weeks) Skin: denies: Rash PD PAST MEDICAL HISTORY - Past Medical History Cardiovascular: None Respiratory: None Endocrine/Autoimmune: None - Past Surgical History Past Surgical History: Yes General: Other - Present Medications Home Medications: Ambulatory Orders Medication Instructions Recorded Confirmed Pnv95/Ferrous Fumarate/FA 1 tab PO DAILY 07/09/17 09/24/17 [ Formula Tablet] Erythromycin Base [Erythromycin 3.5 gm LEFTEYE QID #1 oint...g. 10/08/17 Ophthalmic Ointment] - Allergies Allergies/Adverse Reactions: Allergies Allergy/AdvReac Type Severity Reaction Status Date / Time No Known Drug Allergies Allergy Verified 09/24/17 07:53 - Social History Does the pt smoke?: No Smoking Status: Never smoker Does the pt drink ETOH?: No Does the pt have substance abuse?: No - Immunizations Immunizations are current?: Yes - POLST Patient has POLST: No PD ED PE NORMAL - Vitals Vital signs reviewed: Yes (normal) - General General: Alert and oriented X 3, Well developed/nourished - HEENT HEENT: Atraumatic, PERRL, EOMI, Other (Left upper eyelid is swollen, with hordeolum at medial aspect. No conjunctival erythema.) - Neck Neck: No adenopathy - Respiratory Respiratory: No respiratory distress - Derm Derm: No rash - Neuro Neuro: Alert and oriented X 3 Results - Vitals Vitals: Vital Signs - 24 hr 10/08/17 07:07 Temperature 36.0 C L Heart Rate 46 L Respiratory 16 Rate Blood Pressure 128/58 L O2 Saturation 100 Oxygen O2 Source Room air PD MEDICAL DECISION MAKING - ED course Complexity details: considered differential, d/w patient, d/w family ED course: The patient's presentation is most consistent with hordeolum of the left upper eyelid. There is no evidence of conjunctival involvement. Visual acuity is normal. Treatment in the emergency department included administration of erythromycin ophthalmic ointment. She is being discharged with prescription for same. I discussed with her and her mother the expected course of illness, antibiotic ointment and symptomatic treatment, outpatient follow-up, as well as potentially worrisome signs or symptoms that should prompt reevaluation in the emergency department. - Sepsis Event Vital Signs: Vital Signs - 24 hr 10/08/17 07:07 Temperature 36.0 C L Heart Rate 46 L Respiratory 16 Rate Blood Pressure 128/58 L O2 Saturation 100 Oxygen O2 Source Room air Departure - Departure Disposition: 01 Home, Self Care Clinical Impression: Hordeolum externum (stye) Qualifiers: Laterality: left Eyelid: upper Qualified Code(s): H00.014 - Hordeolum externum left upper eyelid Condition: Stable Instructions: ED Hordeolum Follow-Up: JUNIT[facility] Napoles [Provider Group] Prescriptions: Erythromycin Base [Erythromycin Ophthalmic Ointment] 3.5 gm LEFTEYE QID #1 oint...g. Comments: Use erythromycin ophthalmic ointment in your eye 4 times daily as prescribed. Apply hot soaks to your left eye several times daily until the swelling resolves. Follow up with your primary physician within 1 week. Call to schedule appointment. Return to the emergency department if you develop increasing swelling of your eye, or otherwise worsening symptoms. Forms: Activity restrictions
== END 2017-10-08 07:43 | disposition home or self-care (01) ==
LOC: ED 07:04
DX: O26.893 Other specified pregnancy related conditions, third trimester (principal); H00.14 Chalazion left upper eyelid; Z3A.39 39 weeks gestation of pregnancy
CPT/HCPCS: 99283; J3490

== ENCOUNTER 2017-10-09 09:56 | Outpatient (CLI) | payer OTHER ==
[2017-10-09 10:15] VITALS: BP 144/43
== END 2017-10-09 11:04 | disposition home or self-care (01) ==
LOC: WFO 09:56 → FBP 09:57 → WFO 11:04
PROVIDERS: ATTEND Nurse Practitioner Obstetrics & Gynecology
DX: O47.1 False labor at or after 37 completed weeks of gestation (principal); Z3A.39 39 weeks gestation of pregnancy
CPT/HCPCS: 99213

== ENCOUNTER 2017-10-10 04:27 | Outpatient (CLI) | payer OTHER ==
[2017-10-10] MEDS ORDERED: MORPHINE 10 MG/ML VIAL IM STA (05:19)
[2017-10-10] MEDS ORDERED: PROMETHAZINE 25 MG TABLET PO ONE (05:30)
[2017-10-10 12:50] LABS: BILIRUBIN,URINE NEGATIVE (NEGATIVE); GLUCOSE, URINE (UA) NEGATIVE (NEGATIVE); KETONES,URINE (UA) >=80 mg/dL (NEGATIVE); LEUKOCYTE ESTERASE, URINE NEGATIVE (NEGATIVE); NITRITE,URINE NEGATIVE (NEGATIVE); OCCULT BLOOD,URINE NEGATIVE (NEGATIVE); PROTEIN,URINE NEGATIVE (NEGATIVE); UROBILINOGEN,URINE 0.2 (NORMAL) E.U./dL (NORMAL)
[2017-10-10 12:55] LABS: CLARITY,URINE CLEAR (CLEAR)
[2017-10-10 12:59] VITALS: BP 122/81
[2017-10-10 13:11] LABS: BACTERIA,URINE Few /HPF (None Seen); RBC,URINE None Seen /HPF (0-5); SQUAMOUS EPITHELIAL CELL,UR FEW Squamous (<= Few)
== END 2017-10-10 12:30 | disposition home or self-care (01) ==
LOC: WFO 04:27 → FBP 04:31 → WFO 12:30
PROVIDERS: ATTEND Nurse Practitioner Obstetrics & Gynecology
DX: Z34.03 Encounter for supervision of normal first pregnancy, third trimester (principal)
CPT/HCPCS: 81001; 87086; 99214

== ENCOUNTER 2017-10-10 17:53 | Inpatient (IN) | payer OTHER ==
[2017-10-10] MEDS ORDERED: LACTATED RINGERS 1,000 ML IV ONE ×2 (18:15→19:51)
[2017-10-10] MEDS ORDERED: SODIUM CHLORIDE FLUSH 0.9% 10 ML SYRINGE ONE ×3 (18:15→19:07)
[2017-10-10 18:38] LABS: BASOPHILS % (AUTO) 0.3 %; EOSINOPHILS % (AUTO) 0.1 %; HGB - HEMOGLOBIN 12.4 g/dL (12.0-16.0); LYMPHOCYTES # (AUTO) 0.7 10^3/uL (1.5-3.5); LYMPHOCYTES % (AUTO) 4.9 %; MEAN CORPUSCULAR HEMOGLOBIN 29.7 pg (27.0-31.0); MEAN CORPUSCULAR HGB CONC 33.2 g/dL (32.0-36.0); MEAN CORPUSCULAR VOLUME 89.5 fL (81.0-99.0); MEAN PLATELET VOLUME 9.9 fL (7.9-10.8); MONOCYTES # (AUTO) 0.7 10^3/uL (0.0-1.0); MONOCYTES % (AUTO) 4.8 %; NEUTROPHILS # (AUTO) 13.8 10^3/uL (1.5-6.6); NEUTROPHILS % (AUTO) 89.9 %; PLT - PLATELET COUNT 159 10^3/uL (130-450); RED BLOOD COUNT 4.18 10^6/uL (4.20-5.40); RED CELL DISTRIBUTION WIDTH 14.4 % (12.0-15.0); WHITE BLOOD COUNT 15.3 x10^3/uL (4.8-10.8)
[2017-10-10] MEDS ORDERED: MAGNESIUM SULFATE 2 GRAM 2 GM/50 ML BAG IV ONE (18:45)
[2017-10-10 18:47] LABS: ALBUMIN 3.3 g/dL (3.2-5.5); ALBUMIN/GLOBULIN RATIO 0.9 (1.0-2.2); BILIRUBIN,TOTAL 0.8 mg/dL (0.2-1.0); CALCIUM 8.8 mg/dL (8.5-10.3); CREATININE 0.6 mg/dL (0.4-1.0); TOTAL PROTEIN 7.1 g/dL (6.7-8.2)
[2017-10-10] MEDS ORDERED: MAGNESIUM SULFATE 2 GM in SODIUM CHLORIDE 0.9% 50 ML IV ONE (18:51)
[2017-10-10] MEDS ORDERED: METOPROLOL TARTRATE 25 MG TABLET PO ONE (19:12)
[2017-10-10 19:13] LABS: PHOSPHORUS 3.5 mg/dL (2.5-4.6)
--- NOTE | 2017-10-10 19:16 | HISTORY & PHYSICAL EXAMINATION ---
Admit History - Instructions Hopi/Slash: -Left hand click circles element as positive or present. -Right hand click slashes element as negative or not present. - Visit Reason Visit Reason: Contractions - : 1 Parity: 0 Premature: 0 Ectopic: 0 : 0 Care: positive: [facility] Risk/History: positive: None Complications This : positive: None Smoking Status: Never smoker - Mother's Labs Mother's Blood Type: positive: O Mother's RH: positive: Positive GBS: positive: Group B Step Negative Rubella Status: positive: Immune Meds/Allgy - Home Medications Home Medications: Ambulatory Orders Medication Instructions Recorded Confirmed Pnv95/Ferrous Fumarate/FA 1 tab PO DAILY 07/09/17 09/24/17 [ Formula Tablet] Erythromycin Base [Erythromycin 3.5 gm LEFTEYE QID #1 oint...g. 10/08/17 Ophthalmic Ointment] - Allergies Allergies/Adverse Reactions: Allergies Allergy/AdvReac Type Severity Reaction Status Date / Time No Known Drug Allergies Allergy Verified 09/24/17 07:53 Physical - Abdominal Exam Contraction Frequency (min/apart): 3-6 Contraction Intensity: positive: Moderate to strong Uterine Resting Tone: positive: Soft - Monitoring Heart Rate Baseline: 130 Strip Review: positive: Category II - Presentation Presentation: positive: Vertex - Vaginal Exam Membranes: positive: Membranes intact Dilation (in cm): 8 Effacement (%): 90 Station: positive: 0 Cervical Position: positive: Anterior - Speculum Exam Speculum Exam Performed: positive: No Plan for Labor - Plan For Labor I expect patient to be DC'd or transferred within 96 hours.: Yes Plan for Labor: This 22yo @ 39.2 wks gestation presents to [facility] with c/o contractions which are increasing in intensity. She reports +FM and denies VB or Lof. Upon evaluation she was noted to have an irregular heart rhythm with a dropped third beat. Pt is completely asymptomatic. She denies WYNN, blurred vision, double vision, RUQ or epigastric pain. She denies dizziness or light headedness. Cervix 8/90/0, vertex, soft, anterior. Contractions palpate moderate to strong every 3-6 minutes lasting 60-90 seconds. FHR baseline 130s, moderate variability , +accels, occasional late decelerations. Dating criteria: 1.) LMP 01/09/17 2.) First u/s c/w LMP dating 3.) Serial visits 20-38wks agrees OB History: G1: Current - only significant for persistent nausea and vomiting through the second trimester Past Medical Hx: No significant medical hx Surgical Hx: no past surgeries Social Hx: Never smoker, no ETOH or IVDA. She is active duty . Family Hx: Father - HTN, stroke, OR, diabetes Genetic testing : serum integrated screen WNL Assessment: 22yo @ 39.2wks gestation Maternal cardiac irregular heart beat GBS neg Plan: Dr. Rivera attending physician notified of patient status STAT EKG ordered Pt placed on continuous telemetry unit STAT IV and CBC, CMP ordered IV access achieved and IV fluid bolus initiated. Pt requesting epidural for pain management. Anticipate spontaneous vaginal delivery.
[2017-10-10] MEDS ORDERED: fent/BUPIV 2 MCG/0.125% 250 ML EP ONE (19:41)
[2017-10-10] MEDS ORDERED: BUPIVACAINE 0.25% PF 10 ML VIAL ONE (19:41)
[2017-10-10] MEDS ORDERED: ePHEDrine 50 MG/ML VIAL IVP ONE (19:42)
[2017-10-10 20:37] LABS: BASOPHILS # (AUTO) 0.1 10^3/uL (0.0-0.1); BASOPHILS % (AUTO) 0.8 %; HGB - HEMOGLOBIN 12.3 g/dL (12.0-16.0); LYMPHOCYTES # (AUTO) 0.9 10^3/uL (1.5-3.5); LYMPHOCYTES % (AUTO) 6.1 %; MEAN CORPUSCULAR HEMOGLOBIN 30.8 pg (27.0-31.0); MEAN CORPUSCULAR HGB CONC 33.8 g/dL (32.0-36.0); MEAN PLATELET VOLUME 9.7 fL (7.9-10.8); MONOCYTES # (AUTO) 0.7 10^3/uL (0.0-1.0); MONOCYTES % (AUTO) 5.2 %; NEUTROPHILS # (AUTO) 12.7 10^3/uL (1.5-6.6); NEUTROPHILS % (AUTO) 87.9 %; PLT - PLATELET COUNT 171 10^3/uL (130-450); RED BLOOD COUNT 3.99 10^6/uL (4.20-5.40); RED CELL DISTRIBUTION WIDTH 14.2 % (12.0-15.0); WHITE BLOOD COUNT 14.4 x10^3/uL (4.8-10.8)
[2017-10-10] MEDS ORDERED: ePHEDrine 50 MG/ML VIAL IVP PRN (20:54)
[2017-10-10] MEDS ORDERED: ONDANSETRON 4 MG/2 ML VIAL IVP PRN (20:54)
[2017-10-10] MEDS ORDERED: LACTATED RINGERS 500 ML IV ONE (20:54)
[2017-10-10] MEDS ORDERED: fent/BUPIV 2 MCG/0.125% 250 ML EP PRN (20:54)
[2017-10-10] MEDS ORDERED: NALOXONE 0.4 MG/ML VIAL IVP PRN (20:54)
[2017-10-10] MEDS ORDERED: NALBUPHINE 10 MG/ML AMP IVP PRN (20:54)
[2017-10-10] MEDS ORDERED: LACTATED RINGERS 1,000 ML IV SCH (21:00)
--- NOTE | 2017-10-10 21:43 | PROVIDER PROGRESS NOTE ---
Labor Progress Note - Uterine Monitoring Uterine Monitoring Mode: positive: External toco Contraction Frequency (min/apart): 2-5 Contraction Intensity: positive: Strong Uterine Resting Tone: positive: Soft - Monitoring Monitor Mode: positive: Spiral electrode Heart Rate Baseline: 130 Heart Rate Variability: positive: Moderate (6-25 bmp) Accelerations: positive: Present, 15x15 Decelerations: positive: Late, Variable, Intermittent (<50% x20 min) Strip Review: positive: Category II - Vaginal Exam Dilation (in cm): 9 Effacement (%): 100 Station: 0 Cervical Position: Anterior - Labor Progress Note Labor Progress Note/Additional Text: S: Pt comfortable with epidural and smiling with family at the bedside. Mood is good. Reports feeling previously anxious upon initial arrival due to hurried assessments and her concerns for her baby's well-being. She feels reassured after speaking with Dr. Rivera and she is relieved to no longer be having painful contractions. O: BP 109/67; HR 81; T 99.3 Heart RRR w/o M/G/R, lungs CTAB, abdomen soft, gravid, nontender. EFW 3200g. Bilateral LE's no edema. Mood is good. scalp electrode placed due to difficulty assessing heart tones via external monitor -FHR baseline 120, moderate variability, + accels, intermittent late decelerations, intermittent variable decelerations with quick return to baseline and continued moderate variability. Contractions palpate strong every 3-5 minutes lasting 70-120 seconds with soft resting tone. SVE 9/100/0, vertex, soft A: 22yo @ 39.2wks gestation GBS neg EKG reveals unifocal PVCs with intermittent periods of ventricular bigeminy S/p Mg 2g bolus administered per Dr. Rivera AROM small amount of clear fluid. FHR Category II -overall reassuring P: Dr. Rivrea consulted immediately following patient's arrival. Dr. Rivera consulted with [facility] ED physician and internal medicine. In addition to consultation with M who reported little concern with clinical findings. Continuous telemetry monitoring per Dr. Rivera due to cardiac arrhythmia Continuous monitoring Patient will be allowed to labor down as long as tolerable to pt and fetus. Prior to second stage Dr. Rivera will be notified of patient status and present to the bedside for careful assessment and monitoring throughout the second stage. Reviewed potential for vacuum delivery secondary to cardiac arrhythmia to expedite second stage if needed. Anticipate spontaneous vaginal delivery.
[2017-10-10] MEDS ORDERED: OXYTOCIN/SODIUM CHLORIDE 500 ML IV ONE (22:35)
[2017-10-10] MEDS ORDERED: LIDOCAINE 1% 50 ML MDV ONE (22:36)
[2017-10-11] MEDS ORDERED: HYDROCORTISONE/PRAMOXINE 10 GM PR PRN (00:05)
[2017-10-11] MEDS ORDERED: WITCH HAZEL/GLYCERIN 1 EACH MED..PAD TOP PRN (00:05)
--- NOTE | 2017-10-11 00:05 | DELIVERY NOTE ---
Delivery Note - Labor Labor: positive: Spontaneous - Delivery Method Delivery Method: positive: Spontaneous vaginal delivery - Presentation Presentation: positive: Vertex, SHIRA - left occiput anterior - Nuchal Cord Nuchal Cord: positive: Present, Reduced - Amniotic Fluid Description Amniotic Fluid Description: positive: Clear - Episiotomy Type Episiotomy Type: positive: None - Laceration Laceration: positive: Vaginal - Suture Suture Type: positive: Vicryl Suture Size: positive: 3-0 - Delivery Outcome Delivery Outcome: positive: Livebirth - Dixie: positive: Placed in direct skin contact with mother, Warmed, [place] used Dixie sex: positive: Male - Cord Cord: positive: 3 vessels - Placenta Placenta: positive: Intact, Manual removal - Estimated Blood Loss Estimated Blood Loss (in cc): 400 - Post Delivery Events Post Delivery Events: positive: No post delivery events - Delivery Comments (Free Text/Narrative) Delivery Comments (Free Text/Narrative): Labor: This 22yo @ 39.2wks gestation presented @1750 on 10/10/2017 in active labor. Maternal heart rate was noted to intermittently drop to the 20s- 30s. Pulse irregular with every third beat dropping. Dr. Rivera, elderly companion physician notified. STAT fluid bolus initiated. STAT EKG performed. Pt placed on continuous telemetry. Cervix was 8/90/0, vertex. FHR pattern demonstrated 140 baseline in a category II pattern -overall reassuring. Dr. Rivera consulted with ED physician and internal medicine, as well as maternal medicine. It was determined that the patient was experiencing unifocal PVC's with periodic episodes of bigeminy. Pt remained asymptomatic. Epidural placed upon maternal request. AROM a small amount of clear fluid. The patient was allowed to labor down and reached c/c/+3 at 0234. : Normal SVB of 7lb 1oz viable male infant. Nuchal cord x 2 easily reduced. Body cord x 2. 's 9 and 9 at 1 and 5 min respectively on 2017 at 2253. The was placed on maternal abdomen, dried, and placed skin to skin. Pitocin initiated via IV for hemostasis. The umbilical cord was allowed to stop pulsating at which time it was doubly clamped and cut by mother of the patient. Cord blood was obtained. Gentle downward traction applied to umbilical cord for active management of the third stage of labor per standard of care. The umbilical cord became detached from placenta. Uterine fundus firm and cervical os decreased to 5cm. Pitocin discontinued to allow adequate space for manual removal of placenta. The placenta delivered manually and intact at 2303. Pitocin administration resumed via IV for hemostasis. Uterine fundus firm and there is no excessive bleeding. Dr. Rivera, elderly companion physician present for delivery. EBL 400mL. The patient's cardiac rhythm remained consistently abnormal with no increase in severity and no maternal symptoms. The perineum, vagina, and cervix were inspected and found to have minor vaginal laceration approximately 1cm x 1cm and required repair which was completed with 1 interrupted stitch using 3-[address]-1 needle in usual fashion under sterile conditions. Vaginal examination following repair was done. Tissues well approximated. initiated. Family bonding well. Both mother and baby were left in stable condition.
--- NOTE | 2017-10-11 00:15 | PROVIDER PROGRESS NOTE ---
Subjective - Subjective Subjective: Upon admission, Mg 2 gram bolus administered per Dr. Rivera. Lopressor 25mg PO once adminstered per Dr. Rivera. Objective - Vital Signs/Intake & Output Vital Signs: Vital Signs x48h Pulse Resp BP BP Pulse Ox 10/10/17 19:21 129/73 10/10/17 18:25 52 L 20 133/53 H 98 Intake & Output: Intake & Output 10/08/17 10/09/17 10/10/17 10/11/17 23:59 23:59 23:59 23:59 Intake Total 466.25 Output Total 750 Balance -283.75 - Lab Results Fish Bones: 10/10/17 20:30 10/10/17 18:13 Other Labs: Lab Results x24hrs 10/10/17 10/10/17 10/10/17 Range/Units 20:30 20:30 18:13 WBC 14.4 H (4.8-10.8) x10^3/uL RBC 3.99 L (4.20-5.40) 10^6/uL Hgb 12.3 (12.0-16.0) g/dL Hct 36.3 L (37.0-47.0) % MCV 91.0 (81.0-99.0) fL MCH 30.8 (27.0-31.0) pg MCHC 33.8 (32.0-36.0) g/dL RDW 14.2 (12.0-15.0) % Plt Count 171 (130-450) 10^3/uL MPV 9.7 (7.9-10.8) fL Neut # (Auto) 12.7 H (1.5-6.6) 10^3/uL Lymph # (Auto) 0.9 L (1.5-3.5) 10^3/uL Kendall # (Auto) 0.7 (0.0-1.0) 10^3/uL Eos # (Auto) 0.0 (0.0-0.7) 10^3/uL Baso # (Auto) 0.1 (0.0-0.1) 10^3/uL Absolute Nucleated RBC 0.00 x10^3/uL Nucleated RBC % 0.0 /100WBC Sodium (135-145) mmol/L Potassium (3.5-5.0) mmol/L Chloride (101-111) mmol/L Carbon Dioxide (21-32) mmol/L Anion Gap (6-13) BUN (6-20) mg/dL Creatinine (0.4-1.0) mg/dL Estimated GFR (MDRD) (>89) Glucose (70-100) mg/dL Calcium (8.5-10.3) mg/dL Phosphorus (2.5-4.6) mg/dL Magnesium (1.7-2.8) mg/dL Total Bilirubin (0.2-1.0) mg/dL AST (10-42) IU/L ALT (10-60) IU/L Alkaline Phosphatase (42-121) IU/L Total Protein (6.7-8.2) g/dL Albumin (3.2-5.5) g/dL Globulin (2.1-4.2) g/dL Albumin/Globulin Ratio (1.0-2.2) TSH (0.34-5.60) uIU/mL Blood Type Cancelled Blood Type Recheck O POSITIVE Antibody Screen Cancelled Crossmatch IS Only See Detail 10/10/17 10/10/17 10/10/17 Range/Units 18:13 18:13 18:13 WBC (4.8-10.8) x10^3/uL RBC (4.20-5.40) 10^6/uL Hgb (12.0-16.0) g/dL Hct (37.0-47.0) % MCV (81.0-99.0) fL MCH (27.0-31.0) pg MCHC (32.0-36.0) g/dL RDW (12.0-15.0) % Plt Count (130-450) 10^3/uL MPV (7.9-10.8) fL Neut # (Auto) (1.5-6.6) 10^3/uL Lymph # (Auto) (1.5-3.5) 10^3/uL Kendall # (Auto) (0.0-1.0) 10^3/uL Eos # (Auto) (0.0-0.7) 10^3/uL Baso # (Auto) (0.0-0.1) 10^3/uL Absolute Nucleated RBC x10^3/uL Nucleated RBC % /100WBC Sodium (135-145) mmol/L Potassium (3.5-5.0) mmol/L Chloride (101-111) mmol/L Carbon Dioxide (21-32) mmol/L Anion Gap (6-13) BUN (6-20) mg/dL Creatinine (0.4-1.0) mg/dL Estimated GFR (MDRD) (>89) Glucose (70-100) mg/dL Calcium (8.5-10.3) mg/dL Phosphorus 3.5 (2.5-4.6) mg/dL Magnesium 2.0 (1.7-2.8) mg/dL Total Bilirubin (0.2-1.0) mg/dL AST (10-42) IU/L ALT (10-60) IU/L Alkaline Phosphatase (42-121) IU/L Total Protein (6.7-8.2) g/dL Albumin (3.2-5.5) g/dL Globulin (2.1-4.2) g/dL Albumin/Globulin Ratio (1.0-2.2) TSH 1.09 (0.34-5.60) uIU/mL Blood Type O POSITIVE Blood Type Recheck Antibody Screen NEGATIVE Crossmatch IS Only 10/10/17 10/10/17 Range/Units 18:13 18:13 WBC 15.3 H (4.8-10.8) x10^3/uL RBC 4.18 L (4.20-5.40) 10^6/uL Hgb 12.4 (12.0-16.0) g/dL Hct 37.4 (37.0-47.0) % MCV 89.5 (81.0-99.0) fL MCH 29.7 (27.0-31.0) pg MCHC 33.2 (32.0-36.0) g/dL RDW 14.4 (12.0-15.0) % Plt Count 159 (130-450) 10^3/uL MPV 9.9 (7.9-10.8) fL Neut # (Auto) 13.8 H (1.5-6.6) 10^3/uL Lymph # (Auto) 0.7 L (1.5-3.5) 10^3/uL Kendall # (Auto) 0.7 (0.0-1.0) 10^3/uL Eos # (Auto) 0.0 (0.0-0.7) 10^3/uL Baso # (Auto) 0.0 (0.0-0.1) 10^3/uL Absolute Nucleated RBC 0.00 x10^3/uL Nucleated RBC % 0.0 /100WBC Sodium 133 L (135-145) mmol/L Potassium 3.5 (3.5-5.0) mmol/L Chloride 104 (101-111) mmol/L Carbon Dioxide 22 (21-32) mmol/L Anion Gap 7.0 (6-13) BUN 5 L (6-20) mg/dL Creatinine 0.6 (0.4-1.0) mg/dL Estimated GFR (MDRD) 150 (>89) Glucose 94 (70-100) mg/dL Calcium 8.8 (8.5-10.3) mg/dL Phosphorus (2.5-4.6) mg/dL Magnesium (1.7-2.8) mg/dL Total Bilirubin 0.8 (0.2-1.0) mg/dL AST 20 (10-42) IU/L ALT 15 (10-60) IU/L Alkaline Phosphatase 96 (42-121) IU/L Total Protein 7.1 (6.7-8.2) g/dL Albumin 3.3 (3.2-5.5) g/dL Globulin 3.8 (2.1-4.2) g/dL Albumin/Globulin Ratio 0.9 L (1.0-2.2) TSH (0.34-5.60) uIU/mL Blood Type Blood Type Recheck Antibody Screen Crossmatch IS Only
[2017-10-11] MEDS: OXYTOCIN/SODIUM CHLORIDE 250 ML IV ONE ×2 (00:26→01:10)
[2017-10-11] MEDS: IBUPROFEN 800 MG TABLET PO SCH ×4 (00:28→21:06)
[2017-10-11] MEDS: ACETAMINOPHEN 500 MG TABLET PO SCH ×3 (00:28→16:57)
[2017-10-11] MEDS ORDERED: OXYTOCIN/SODIUM CHLORIDE 250 ML IV ONE (01:10)
[2017-10-11] MEDS: SODIUM CHLORIDE FLUSH 0.9% 10 ML SYRINGE IVP PRN (01:12)
[2017-10-11] MEDS: SODIUM CHLORIDE FLUSH 0.9% 10 ML SYRINGE IVP SCH ×2 (01:12→09:16)
--- NOTE | 2017-10-11 01:28 | PREOP HISTORY & PHYSICAL ---
DATE OF SERVICE: 10/10/2017 Physician: Cordell Rivera MD PATIENT IDENTIFICATION: Patient is a 22-year-old G1, P0, female whose EDC was 10/16/2017. She is 39 weeks 2 days. CHIEF COMPLAINT: Ventricular ectopy. HISTORY OF PRESENT ILLNESS: Patient presented to labor and delivery at which time she was noted to have heart rates running as low as 20. She had an EKG performed, at which time she was noted to have unifocal PVCs. These were occurring about every 2-4 cycles. There was no evidence of any ST changes at this time. She was noted to have some enlargement of the left ventricle that would be compatible with her state. Upon reviewing her heart monitor strip, she was noted to have episodes of bigeminy. heart strip was noted to have some episodes of bradycardia, but she was noted to have good beat-to- beat variability as well as good response with accelerations. She was seen earlier this morning, at which time her cervix was 3 cm and now progressed to 9 cm. Patient had been seen back in May, at which time she had an irregular heartbeat and had an EKG performed and that EKG was very similar to the EKG seen today. She denies any symptoms such as lightheadedness or fatigue. Her has been unremarkable at this point. These issues were discussed with the emergency room doc here as well as our hospitalist. Both of them were reassuring at this time. PAST MEDICAL HISTORY: Patient denies any hypertensive or diabetic disease. She does have a history of arrhythmia, which is asymptomatic. PAST SURGICAL HISTORY: None. ALLERGIES: NONE KNOWN. CURRENT MEDICATIONS: vitamin. She did receive some morphine as well as Phenergan earlier today for rest. HABITS: Patient denies use of alcohol, tobacco or street addictive drugs. LABORATORY DATA CBC: Hemoglobin was 12.4, hematocrit is 37.4, platelets are 153, white count was 15.3. Electrolytes showed a mild hyponatremia of 133. Her potassium was 3.5. Her magnesium was 2.0. VITAL SIGNS: Blood pressure 122/81, pulse was 98, respirations were 18, and temperature is 36.9. ASSESSMENT 1. A 22-year-old G1, P0 female at 32.2 weeks. 2. Ectopy, asymptomatic. 3. Patient is progressed from 3 to 9 cm, thus is non transferrable. PLAN Following discussion with Internal Medicine, she was administered 2 grams of magnesium sulfate. She was also given Lopressor 25 mg. I have discussed with Dr. Sullivan at [facility] her condition. At that point, he agreed with the therapy we were doing. He states that he was not nearly as concerned as we were as he sees this on a regular basis and they are mostly all benign. We will monitor through labor. We will place a heart monitor in the room so we can monitor her heartbeat. Epidural was placed for labor analgesia. We will plan to do a spontaneous vaginal delivery and section only for indications. We will allow her to labor down to minimize how long she has to push. TD: 10/10/2017 21:12 PASCUAL
[2017-10-11] MEDS: DOCUSATE SODIUM 100 MG CAPSULE PO SCH ×2 (09:15→21:06)
--- NOTE | 2017-10-11 09:32 | PROVIDER PROGRESS NOTE ---
Subjective - Subjective Subjective: S: Bonding well with baby. without difficulty. Pain well controlled with ibuprofen. Bleeding decreased and is light. Cramping mild. Perineum comfortable. Feels well rested and states she is so happy to have pushed out her baby. Patient's mother supportive at the bedside. O: BP 115/77, 108/50; HR 83, RR 18. Heart regular rate with irregular rhythm. Continues to drop every fourth beat but remains asymptomatic. No M/G/R. Bilateral LE's no edema. Abdomen soft and nontender with fundus firm at U-3. Bilateral LE's no edema. Perineum intact with minimal edema. A: 22yo -->P1 PPD#1 s/p TSVD of viable male Hgb 12.4-->12.3 Univocal PVCs with intermittent episodes of bigeminy P: Echocardiogram ordered to be completed today for purposes of viewing results prior to her discharge tomorrow. Continue routine care and medications. Anticipate discharge home tomorrow on day #2. Objective - Vital Signs/Intake & Output Vital Signs: Vital Signs x48h Temp Pulse Resp BP Pulse Ox 10/11/17 07:31 36.9 C 83 18 115/77 100 10/11/17 06:25 36.6 C 93 16 108/50 L 100 10/11/17 02:05 81 16 109/71 Intake & Output: Intake & Output 10/08/17 10/09/17 10/10/17 10/11/17 23:59 23:59 23:59 23:59 Intake Total 1050.00 1396.667 Output Total 750 580 Balance 300.00 816.667 - Lab Results Fish Bones: 10/10/17 20:30 10/10/17 18:13 Other Labs: Lab Results x24hrs 10/10/17 10/10/17 10/10/17 Range/Units 20:30 20:30 18:13 WBC 14.4 H (4.8-10.8) x10^3/uL RBC 3.99 L (4.20-5.40) 10^6/uL Hgb 12.3 (12.0-16.0) g/dL Hct 36.3 L (37.0-47.0) % MCV 91.0 (81.0-99.0) fL MCH 30.8 (27.0-31.0) pg MCHC 33.8 (32.0-36.0) g/dL RDW 14.2 (12.0-15.0) % Plt Count 171 (130-450) 10^3/uL MPV 9.7 (7.9-10.8) fL Neut # (Auto) 12.7 H (1.5-6.6) 10^3/uL Lymph # (Auto) 0.9 L (1.5-3.5) 10^3/uL Garza # (Auto) 0.7 (0.0-1.0) 10^3/uL Eos # (Auto) 0.0 (0.0-0.7) 10^3/uL Baso # (Auto) 0.1 (0.0-0.1) 10^3/uL Absolute Nucleated RBC 0.00 x10^3/uL Nucleated RBC % 0.0 /100WBC Sodium (135-145) mmol/L Potassium (3.5-5.0) mmol/L Chloride (101-111) mmol/L Carbon Dioxide (21-32) mmol/L Anion Gap (6-13) BUN (6-20) mg/dL Creatinine (0.4-1.0) mg/dL Estimated GFR (MDRD) (>89) Glucose (70-100) mg/dL Calcium (8.5-10.3) mg/dL Phosphorus (2.5-4.6) mg/dL Magnesium (1.7-2.8) mg/dL Total Bilirubin (0.2-1.0) mg/dL AST (10-42) IU/L ALT (10-60) IU/L Alkaline Phosphatase (42-121) IU/L Total Protein (6.7-8.2) g/dL Albumin (3.2-5.5) g/dL Globulin (2.1-4.2) g/dL Albumin/Globulin Ratio (1.0-2.2) TSH (0.34-5.60) uIU/mL Blood Type Cancelled Blood Type Recheck O POSITIVE Antibody Screen Cancelled Crossmatch IS Only See Detail 10/10/17 10/10/17 10/10/17 Range/Units 18:13 18:13 18:13 WBC (4.8-10.8) x10^3/uL RBC (4.20-5.40) 10^6/uL Hgb (12.0-16.0) g/dL Hct (37.0-47.0) % MCV (81.0-99.0) fL MCH (27.0-31.0) pg MCHC (32.0-36.0) g/dL RDW (12.0-15.0) % Plt Count (130-450) 10^3/uL MPV (7.9-10.8) fL Neut # (Auto) (1.5-6.6) 10^3/uL Lymph # (Auto) (1.5-3.5) 10^3/uL Garza # (Auto) (0.0-1.0) 10^3/uL Eos # (Auto) (0.0-0.7) 10^3/uL Baso # (Auto) (0.0-0.1) 10^3/uL Absolute Nucleated RBC x10^3/uL Nucleated RBC % /100WBC Sodium (135-145) mmol/L Potassium (3.5-5.0) mmol/L Chloride (101-111) mmol/L Carbon Dioxide (21-32) mmol/L Anion Gap (6-13) BUN (6-20) mg/dL Creatinine (0.4-1.0) mg/dL Estimated GFR (MDRD) (>89) Glucose (70-100) mg/dL Calcium (8.5-10.3) mg/dL Phosphorus 3.5 (2.5-4.6) mg/dL Magnesium 2.0 (1.7-2.8) mg/dL Total Bilirubin (0.2-1.0) mg/dL AST (10-42) IU/L ALT (10-60) IU/L Alkaline Phosphatase (42-121) IU/L Total Protein (6.7-8.2) g/dL Albumin (3.2-5.5) g/dL Globulin (2.1-4.2) g/dL Albumin/Globulin Ratio (1.0-2.2) TSH 1.09 (0.34-5.60) uIU/mL Blood Type O POSITIVE Blood Type Recheck Antibody Screen NEGATIVE Crossmatch IS Only 10/10/17 10/10/17 Range/Units 18:13 18:13 WBC 15.3 H (4.8-10.8) x10^3/uL RBC 4.18 L (4.20-5.40) 10^6/uL Hgb 12.4 (12.0-16.0) g/dL Hct 37.4 (37.0-47.0) % MCV 89.5 (81.0-99.0) fL MCH 29.7 (27.0-31.0) pg MCHC 33.2 (32.0-36.0) g/dL RDW 14.4 (12.0-15.0) % Plt Count 159 (130-450) 10^3/uL MPV 9.9 (7.9-10.8) fL Neut # (Auto) 13.8 H (1.5-6.6) 10^3/uL Lymph # (Auto) 0.7 L (1.5-3.5) 10^3/uL Garza # (Auto) 0.7 (0.0-1.0) 10^3/uL Eos # (Auto) 0.0 (0.0-0.7) 10^3/uL Baso # (Auto) 0.0 (0.0-0.1) 10^3/uL Absolute Nucleated RBC 0.00 x10^3/uL Nucleated RBC % 0.0 /100WBC Sodium 133 L (135-145) mmol/L Potassium 3.5 (3.5-5.0) mmol/L Chloride 104 (101-111) mmol/L Carbon Dioxide 22 (21-32) mmol/L Anion Gap 7.0 (6-13) BUN 5 L (6-20) mg/dL Creatinine 0.6 (0.4-1.0) mg/dL Estimated GFR (MDRD) 150 (>89) Glucose 94 (70-100) mg/dL Calcium 8.8 (8.5-10.3) mg/dL Phosphorus (2.5-4.6) mg/dL Magnesium (1.7-2.8) mg/dL Total Bilirubin 0.8 (0.2-1.0) mg/dL AST 20 (10-42) IU/L ALT 15 (10-60) IU/L Alkaline Phosphatase 96 (42-121) IU/L Total Protein 7.1 (6.7-8.2) g/dL Albumin 3.3 (3.2-5.5) g/dL Globulin 3.8 (2.1-4.2) g/dL Albumin/Globulin Ratio 0.9 L (1.0-2.2) TSH (0.34-5.60) uIU/mL Blood Type Blood Type Recheck Antibody Screen Crossmatch IS Only
[2017-10-11] MEDS ORDERED: ASPIRIN 325 MG TABLET PO STA (13:03)
--- NOTE | 2017-10-11 13:05 | CONSULTATION NOTE ---
Referring Provider Name of Referring Provider:: Cordell Rivera MD Consult Date: 10/11/17 Chief Complaint - Chief Complaint Chief Complaint: Chest pain History of Present Illness - History Obtained From Records Reviewed: Yes History obtained from: Patient Exam Limitations: None - History of Present Illness HPI Comment/Other: Patient is a 22-year-old female with no prior past medical history who is having delivered a healthy boy on 10/10/2017 and is being taken care of by the obstetrics and gynecology service. We have been consulted for a complaint of chest pain. On presentation to the hospital yesterday the patient was found to have significant amount of ectopy on her monitor. The patient underwent an EKG which confirmed that she had multiple PVCs and had episodes of bigeminy. The patient underwent an echocardiogram yesterday evening which shows an overall left ventricular systolic function that is mild to moderately impaired with an ejection fraction of 40-45%. It also showed moderate left ventricular enlargement and severe increase in left atrial index volume. With these findings the cracker and cookie machine operator Dr. Marin called a maternal medicine specialist who was unimpressed by this and felt that the patient should follow-up as an outpatient for her cardiac issues. Later on in the afternoon the patient complained of chest pain therefore the hospitalist team was consulted to assess this problem. The patient states that she has had off-and-on chest pain for a number of years now. She states that she is never had it worked up as it resolves on its own. The patient states that her most recent episode of chest pain started about half an hour prior to me seeing her. This would be around 12:30 PM on 2017. She states that initially she noticed she was having a pressure-like sensation in the center of her chest while she was lying in her bed. She states that she did not make much of it but when she went she got up to have a shower she states that the pressure became more noticeable and her pain level worsened. She denies any radiation of the chest pressure. She does admit to feeling short of breath with exertion and at rest while she is having the chest pain. She denies feeling nauseated or having any diaphoresis. She denies any palpitations. She denies any orthopnea, PND or increased lower extremity swelling. The patient denies any abdominal pain. The patient denies any cough , fevers or any chills. The patient denies any headaches, blurred vision, runny nose, sore throat, nasal congestion, difficulty swallowing, complain diarrhea, constipation, urinary urgency, urinary frequency, dysuria, joint swelling, joint pain, back pain, muscle aches, neck stiffness, recent unintentional weight loss, changes in her appetite, hair loss or rash 9, night sweats or any focal neurologic deficits. History - Past Medical History Cardiovascular: reports: Congestive heart failure (EF 40-45%) Respiratory: reports: None Endocrine/Autoimmune: reports: None MRSA Hx?: No - Past Surgical History General: reports: Other - Family & Social History Family History: Mother: Alive and Well, Father: CAD (Enlarged atrium), ID (@ 53 yo) Family History Comment/Other: Nephew with congenital heart disease but no one else in family with CAD. No DM or Cancer. Living arrangement: At home Living Situation: With family Social History Notes: Patient lives in [place] with her mother. Her mother is originally from [place]. She is single. She is active [employer] [place]. She has never smoked cigarettes, she does not drink alcohol and she denies any drug use. - POLST Patient has POLST: No POLST Status: Full Code Meds/Allgy - Home Medications Home Medications: Ambulatory Orders Medication Instructions Recorded Confirmed Pnv95/Ferrous Fumarate/FA 1 tab PO DAILY 07/09/17 09/24/17 [ Formula Tablet] Erythromycin Base [Erythromycin 3.5 gm LEFTEYE QID #1 oint...g. 10/08/17 Ophthalmic Ointment] - Allergies Allergies/Adverse Reactions: Allergies Allergy/AdvReac Type Severity Reaction Status Date / Time No Known Drug Allergies Allergy Verified 09/24/17 07:53 Review of Systems - Other Findings Other Findings: A comprehensive review of systems was performed the pertinent positives and negatives are stated above in the HPI and the remainder of the review of systems is negative. Exam - Vital Signs Reviewed Vital Signs: Yes Vital Signs: Vital Signs x48h Temp Pulse Resp BP Pulse Ox 10/11/17 07:31 36.9 C 83 18 115/77 100 10/11/17 06:25 36.6 C 93 16 108/50 L 100 - Physical Exam General Appearance: positive: Alert, Mild distress (Chest pain, short of breath) , Anxious Eyes Bilateral: positive: Normal inspection, PERRL, EOMI, No lid inflammation, Conjunctivae nml, No scleral icterus ENT: positive: ENT inspection nml, Pharynx nml, No signs of dehydration. negative: Purulent nasal drainage, Pharyngeal erythema, Oral lesions Neck: positive: Nml inspection, Thyroid nml, No JVD, Trachea midline. negative : Lymphadenopathy (R), Lymphadenopathy (L), Stiff neck, Carotid bruit, Tracheal deviation Respiratory: positive: Chest non-tender, No respiratory distress, Breath sounds nml. negative: Wheezes, Rales, Rhonchi Cardiovascular: positive: No murmur, No gallop, Extrasystoles Peripheral Pulses: positive: 2+ Abdomen: positive: Non-tender, No organomegaly, Nml bowel sounds, No distention. negative: Guarding, Rebound, Hepatomegaly Back: positive: Nml inspection. negative: CVA tenderness (R), CVA tenderness (L ) Skin: positive: Color nml, No rash, Warm, Dry. negative: Cyanosis, Diaphoresis , Pallor Extremities: positive: Non-tender, Full ROM, Nml appearance, No pedal edema Neurologic/Psychiatric: positive: Oriented x3, CN's nml (2-12), Motor nml, Sensation nml, Mood/affect nml Conclusion/Plan - Diagnosis Diagnosis: 1. Chest pain. 2. Systolic congestive heart failure NYHA class I. 3. Ectopy - Plan Plan: 1. Regarding the chest pain this is very unlikely to be acute coronary syndrome in the setting of a 22-year-old female without any previous cardiac risk factors. It is possible that this chest pain may be related to her congestive heart failure. Patient may have some fluid overload that could be causing her this chest discomfort and shortness of breath. Given her recent and hypercoagulable state a pulmonary embolism is also high on our differential. She has chest pain, shortness of breath and sinus tachycardia. Pneumonia also has to be in the differential given her recent hospitalization although it is unlikely given that she does not have fever or cough. She does have leukocytosis but this is also normal during . Although her echocardiogram does not appear to show right heart strain there is enough concern that it does warrant further testing. The patient also appears to be anxious and this chest pain could be related to anxiety. Plan: EKG Serial troponins x3 Aspirin [address] angiogram lungs to rule out pulmonary embolism Chest x-ray We will continue to follow the patient and follow-up on results of the above. 2. The patient does appear to have a reduced ejection fraction of 40-45% with moderate left ventricular enlargement, severely increased left atrial volume index and mild to moderate right atrial enlargement. The findings on echocardiogram are suggestive of a chronic issue that has developed over time as opposed to an acute issue from acute coronary syndrome. It is possible that the patient could have developed cardiomyopathy of . Currently the patient is having some chest pain and is short of breath. The patient has received a significant amount of fluid over the course of her hospitalization and delivery. She may have a mild exacerbation of her CHF that could be causing her chest pain. The patient however does not have crackles on examination. She does not appear to be fluid overloaded. Plan: We will obtain a BNP and a chest x-ray if these are suggestive of CHF exacerbation we will give the patient IV Lasix. The patient will be started on metoprolol and lisinopril to optimize her medical regimen for treatment of systolic heart failure. Patient will need to follow-up with cardiology as an outpatient 3. Patient has ectopy on telemetry and on EKGs. It appears that this is been going on for some time as she has had EKGs in the past that have shown ectopy. The patient has bigeminy as well as trigeminy on EKGs. The patient's electrolytes are all within normal limits. This kind of ectopy is typically non -life-threatening and managed conservatively. It is likely that she has ectopy due to her congestive heart failure and other findings of echocardiogram. Plan: Monitor on telemetry Patient is being started on metoprolol which may help with her ectopy. - Lab Results Lab results reviewed: Yes Fish Bones: 10/10/17 20:30 10/10/17 18:13 Other Lab Results: Laboratory Results WBC 14.4 x10^3/uL (4.8-10.8) H 10/10/17 20:30 RBC 3.99 10^6/uL (4.20-5.40) L 10/10/17 20:30 Hgb 12.3 g/dL (12.0-16.0) 10/10/17 20:30 Hct 36.3 % (37.0-47.0) L 10/10/17 20:30 MCV 91.0 fL (81.0-99.0) 10/10/17 20:30 MCH 30.8 pg (27.0-31.0) 10/10/17 20:30 MCHC 33.8 g/dL (32.0-36.0) 10/10/17 20:30 RDW 14.2 % (12.0-15.0) 10/10/17 20:30 Plt Count 171 10^3/uL (130-450) 10/10/17 20:30 MPV 9.7 fL (7.9-10.8) 10/10/17 20:30 Neut # (Auto) 12.7 10^3/uL (1.5-6.6) H 10/10/17:30 Lymph # (Auto) 0.9 10^3/uL (1.5-3.5) L 10/10/17 20:30 [place] # (Auto) 0.7 10^3/uL (0.0-1.0) 10/10/17:30 Eos # (Auto) 0.0 10^3/uL (0.0-0.7) 10/10/17 20:30 Baso # (Auto) 0.1 10^3/uL (0.0-0.1) 10/10/17:30 Absolute Nucleated RBC 0.00 x10^3/uL 10/10/17 20:30 Nucleated RBC % 0.0 /100WBC 10/10/17 20:30 Sodium 133 mmol/L (135-145) L 10/10/17 18:13 Potassium 3.5 mmol/L (3.5-5.0) 10/10/17 18:13 Chloride 104 mmol/L (101-111) 10/10/17 18:13 Carbon Dioxide 22 mmol/L (21-32) 10/10/17 18:13 Anion Gap 7.0 (6-13) 10/10/17 18:13 BUN 5 mg/dL (6-20) L 10/10/17 18:13 Creatinine 0.6 mg/dL (0.4-1.0) 10/10/17 18:13 Estimated GFR (MDRD) 150 (>89) 10/10/17 18:13 Glucose 94 mg/dL (70-100) 10/10/17 18:13 Calcium 8.8 mg/dL (8.5-10.3) 10/10/17 18:13 Phosphorus 3.5 mg/dL (2.5-4.6) 10/10/17 18:13 Magnesium 2.0 mg/dL (1.7-2.8) 10/10/17 18:13 Total Bilirubin 0.8 mg/dL (0.2-1.0) 10/10/17 18:13 AST 20 IU/L (10-42) 10/10/17 18:13 ALT 15 IU/L (10-60) 10/10/17 18:13 Alkaline Phosphatase 96 IU/L (42-121) 10/10/17 18:13 Total Protein 7.1 g/dL (6.7-8.2) 10/10/17 18: Albumin 3.3 g/dL (3.2-5.5) 10/10/17 18: Globulin 3.8 g/dL (2.1-4.2) 10/10/17 18: Albumin/Globulin Ratio 0.9 (1.0-2.2) L 10/10/17 18: TSH 1.09 uIU/mL (0.34-5.60) 10/10/17 18:13 Blood Type O POSITIVE 10/10/17 18: Blood Type Recheck O POSITIVE 10/10/17 20:30 Antibody Screen NEGATIVE 10/10/17 18: Crossmatch IS Only See Detail 10/10/17 18:13 - Diagnostic Imaging Results Diagnostic Imaging Results: positive: Final report reviewed Diagnostic Imaging Results Comments: Echocardiogram Conclusions 1. Moderate left ventricular enlargement. 2. Overall left ventricular systolic function is mildmoderately globally impaired with an ejection fraction of 40-45%. 3. Severe increase in left atrial volume index. 4. Mild to moderate right atrial enlargement - EKG Results EKG Interpreted Independently: Yes EKG Comparison: Unchanged from prior EKG EKG Findings: Ventricular trigeminy, sinus tachycardia, atrial enlargement. No ST elevations or acute ischemic changes are noted. This EKG is similar to prior EKG.
--- NOTE | 2017-10-11 13:31 | XRAY Report ---
Procedure Date: 10/11/2017 Accession Number: [id number] / [id number] Procedure: XR - Chest 2 View X-Ray CPT Code: 95753 FULL RESULT: EXAM: CHEST RADIOGRAPHY EXAM DATE: 10/11/2017 01:18 PM. CLINICAL HISTORY: Cardiomegaly, ejection fraction 45. COMPARISON: None. TECHNIQUE: 2 views. FINDINGS: Lungs/Pleura: No focal opacities evident. No pleural effusion. No pneumothorax. Normal volumes. Mediastinum: Heart and mediastinal contours are unremarkable. Other: None. IMPRESSION: Normal-sized cardiac silhouette. RADIA
[2017-10-11] MEDS ORDERED: IOPAMIDOL-300 100 ML VIAL ONE (13:39)
[2017-10-11] MEDS: METOPROLOL TARTRATE 25 MG TABLET PO SCH (14:40)
[2017-10-11] MEDS: LISINOPRIL 5 MG TABLET PO SCH (14:41)
--- NOTE | 2017-10-11 14:42 | CT Report ---
Procedure Date: 10/11/2017 Accession Number: [id number] / [id number] Procedure: CT - Chest Angio (PE) CPT Code: FULL RESULT: EXAM: CT ANGIOGRAM CHEST. EXAM DATE: 10/11/2017 02:09 PM. CLINICAL HISTORY: Chest pain, recent , shortness of breath. COMPARISON: Chest radiograph performed the same day. TECHNIQUE: Routine helical imaging was performed through the chest in the pulmonary arterial phase. IV Contrast: ISOVUE 300 80 mL. Reconstructions: Coronal 3-D MIP reconstructions.Sagittal and coronal. In accordance with CT protocol optimization, one or more of the following dose reduction techniques were utilized for this exam: automated exposure control, adjustment of mA and/or KV based on patient size, or use of iterative reconstructive technique. FINDINGS: Pulmonary Arteries: Normal caliber main pulmonary artery. No filling suspicious defects to the segmental level. Diagnostic quality: Adequate through the segmental arteries. No evidence for acute or chronic pulmonary emboli. RV/LV is within normal limits, however, enlargement of both ventricles is noted. There is no interventricular septal bowing. There is no reflux of contrast material in the IVC. Lungs/Pleura: No consolidation, nodules, or edema. No effusions or pneumothorax. Mediastinum: The aorta and mediastinal lymph nodes are unremarkable. Biventricular cardiomegaly. Thoracic Aorta: Unremarkable. Upper Abdomen: Unremarkable. Other: None. IMPRESSION: Biventricular cardiomegaly. No PE. RADIA
[2017-10-11] MEDS ORDERED: IOPAMIDOL-300 100 ML VIAL IVP ONE (15:56)
--- NOTE | 2017-10-11 18:12 | PROVIDER PROGRESS NOTE ---
Subjective - Prog Note Date Prog Note Date: 10/11/17 Prog Note Time: 18:10 - Subjective Pt reports feeling: No change (Pt isaiah dyspnia, had episode of chest pain. brest feeding) Objective - Vital Signs/Intake & Output Reviewed Vital Signs: Yes Vital Signs: Vital Signs x48h Temp Pulse Resp BP Pulse Ox 10/11/17 12:42 66 22 126/80 100 10/11/17 11:15 36.9 C 67 16 101/79 100 Intake & Output: Intake & Output 10/08/17 10/09/17 10/10/17 10/11/17 23:59 23:59 23:59 23:59 Intake Total 1050.00 1396.667 Output Total 750 580 Balance 300.00 816.667 - Objective General Appearance: positive: No acute distress, Alert - Lab Results Fish Bones: 10/10/17 20:30 10/10/17 18:13 Other Labs: Lab Results x24hrs 10/11/17 10/11/17 10/10/17 Range/Units 13:20 13:20 20:30 WBC 14.4 H (4.8-10.8) x10^3/uL RBC 3.99 L (4.20-5.40) 10^6/uL Hgb 12.3 (12.0-16.0) g/dL Hct 36.3 L (37.0-47.0) % MCV 91.0 (81.0-99.0) fL MCH 30.8 (27.0-31.0) pg MCHC 33.8 (32.0-36.0) g/dL RDW 14.2 (12.0-15.0) % Plt Count 171 (130-450) 10^3/uL MPV 9.7 (7.9-10.8) fL Neut # (Auto) 12.7 H (1.5-6.6) 10^3/uL Lymph # (Auto) 0.9 L (1.5-3.5) 10^3/uL Mathews # (Auto) 0.7 (0.0-1.0) 10^3/uL Eos # (Auto) 0.0 (0.0-0.7) 10^3/uL Baso # (Auto) 0.1 (0.0-0.1) 10^3/uL Absolute Nucleated RBC 0.00 x10^3/uL Nucleated RBC % 0.0 /100WBC Sodium (135-145) mmol/L Potassium (3.5-5.0) mmol/L Chloride (101-111) mmol/L Carbon Dioxide (21-32) mmol/L Anion Gap (6-13) BUN (6-20) mg/dL Creatinine (0.4-1.0) mg/dL Estimated GFR (MDRD) (>89) Glucose (70-100) mg/dL Calcium (8.5-10.3) mg/dL Phosphorus (2.5-4.6) mg/dL Magnesium (1.7-2.8) mg/dL Total Bilirubin (0.2-1.0) mg/dL AST (10-42) IU/L ALT (10-60) IU/L Alkaline Phosphatase (42-121) IU/L Troponin I < 0.04 (<0.49) ng/mL B-Natriuretic Peptide 96 (5-100) pg/mL Total Protein (6.7-8.2) g/dL Albumin (3.2-5.5) g/dL Globulin (2.1-4.2) g/dL Albumin/Globulin Ratio (1.0-2.2) TSH (0.34-5.60) uIU/mL Blood Type Blood Type Recheck Antibody Screen Crossmatch IS Only 10/10/17 10/10/17 10/10/17 Range/Units 20:30 18:13 18:13 WBC (4.8-10.8) x10^3/uL RBC (4.20-5.40) 10^6/uL Hgb (12.0-16.0) g/dL Hct (37.0-47.0) % MCV (81.0-99.0) fL MCH (27.0-31.0) pg MCHC (32.0-36.0) g/dL RDW (12.0-15.0) % Plt Count (130-450) 10^3/uL MPV (7.9-10.8) fL Neut # (Auto) (1.5-6.6) 10^3/uL Lymph # (Auto) (1.5-3.5) 10^3/uL Mathews # (Auto) (0.0-1.0) 10^3/uL Eos # (Auto) (0.0-0.7) 10^3/uL Baso # (Auto) (0.0-0.1) 10^3/uL Absolute Nucleated RBC x10^3/uL Nucleated RBC % /100WBC Sodium (135-145) mmol/L Potassium (3.5-5.0) mmol/L Chloride (101-111) mmol/L Carbon Dioxide (21-32) mmol/L Anion Gap (6-13) BUN (6-20) mg/dL Creatinine (0.4-1.0) mg/dL Estimated GFR (MDRD) (>89) Glucose (70-100) mg/dL Calcium (8.5-10.3) mg/dL Phosphorus (2.5-4.6) mg/dL Magnesium (1.7-2.8) mg/dL Total Bilirubin (0.2-1.0) mg/dL AST (10-42) IU/L ALT (10-60) IU/L Alkaline Phosphatase (42-121) IU/L Troponin I (<0.49) ng/mL B-Natriuretic Peptide (5-100) pg/mL Total Protein (6.7-8.2) g/dL Albumin (3.2-5.5) g/dL Globulin (2.1-4.2) g/dL Albumin/Globulin Ratio (1.0-2.2) TSH 1.09 (0.34-5.60) uIU/mL Blood Type Cancelled Blood Type Recheck O POSITIVE Antibody Screen Cancelled Crossmatch IS Only See Detail 10/10/17 10/10/17 10/10/17 Range/Units 18:13 18:13 18:13 WBC (4.8-10.8) x10^3/uL RBC (4.20-5.40) 10^6/uL Hgb (12.0-16.0) g/dL Hct (37.0-47.0) % MCV (81.0-99.0) fL MCH (27.0-31.0) pg MCHC (32.0-36.0) g/dL RDW (12.0-15.0) % Plt Count (130-450) 10^3/uL MPV (7.9-10.8) fL Neut # (Auto) (1.5-6.6) 10^3/uL Lymph # (Auto) (1.5-3.5) 10^3/uL Mathews # (Auto) (0.0-1.0) 10^3/uL Eos # (Auto) (0.0-0.7) 10^3/uL Baso # (Auto) (0.0-0.1) 10^3/uL Absolute Nucleated RBC x10^3/uL Nucleated RBC % /100WBC Sodium 133 L (135-145) mmol/L Potassium 3.5 (3.5-5.0) mmol/L Chloride 104 (101-111) mmol/L Carbon Dioxide 22 (21-32) mmol/L Anion Gap 7.0 (6-13) BUN 5 L (6-20) mg/dL Creatinine 0.6 (0.4-1.0) mg/dL Estimated GFR (MDRD) 150 (>89) Glucose 94 (70-100) mg/dL Calcium 8.8 (8.5-10.3) mg/dL Phosphorus 3.5 (2.5-4.6) mg/dL Magnesium 2.0 (1.7-2.8) mg/dL Total Bilirubin 0.8 (0.2-1.0) mg/dL AST 20 (10-42) IU/L ALT 15 (10-60) IU/L Alkaline Phosphatase 96 (42-121) IU/L Troponin I (<0.49) ng/mL B-Natriuretic Peptide (5-100) pg/mL Total Protein 7.1 (6.7-8.2) g/dL Albumin 3.3 (3.2-5.5) g/dL Globulin 3.8 (2.1-4.2) g/dL Albumin/Globulin Ratio 0.9 L (1.0-2.2) TSH (0.34-5.60) uIU/mL Blood Type O POSITIVE Blood Type Recheck Antibody Screen NEGATIVE Crossmatch IS Only 10/10/17 Range/Units 18:13 WBC 15.3 H (4.8-10.8) x10^3/uL RBC 4.18 L (4.20-5.40) 10^6/uL Hgb 12.4 (12.0-16.0) g/dL Hct 37.4 (37.0-47.0) % MCV 89.5 (81.0-99.0) fL MCH 29.7 (27.0-31.0) pg MCHC 33.2 (32.0-36.0) g/dL RDW 14.4 (12.0-15.0) % Plt Count 159 (130-450) 10^3/uL MPV 9.9 (7.9-10.8) fL Neut # (Auto) 13.8 H (1.5-6.6) 10^3/uL Lymph # (Auto) 0.7 L (1.5-3.5) 10^3/uL Mathews # (Auto) 0.7 (0.0-1.0) 10^3/uL Eos # (Auto) 0.0 (0.0-0.7) 10^3/uL Baso # (Auto) 0.0 (0.0-0.1) 10^3/uL Absolute Nucleated RBC 0.00 x10^3/uL Nucleated RBC % 0.0 /100WBC Sodium (135-145) mmol/L Potassium (3.5-5.0) mmol/L Chloride (101-111) mmol/L Carbon Dioxide (21-32) mmol/L Anion Gap (6-13) BUN (6-20) mg/dL Creatinine (0.4-1.0) mg/dL Estimated GFR (MDRD) (>89) Glucose (70-100) mg/dL Calcium (8.5-10.3) mg/dL Phosphorus (2.5-4.6) mg/dL Magnesium (1.7-2.8) mg/dL Total Bilirubin (0.2-1.0) mg/dL AST (10-42) IU/L ALT (10-60) IU/L Alkaline Phosphatase (42-121) IU/L Troponin I (<0.49) ng/mL B-Natriuretic Peptide (5-100) pg/mL Total Protein (6.7-8.2) g/dL Albumin (3.2-5.5) g/dL Globulin (2.1-4.2) g/dL Albumin/Globulin Ratio (1.0-2.2) TSH (0.34-5.60) uIU/mL Blood Type Blood Type Recheck Antibody Screen Crossmatch IS Only - Diagnostic Imaging Diagnostic Imaging Results: positive: Final report reviewed Diagnostic Imaging Comments: CXR no effusion or plumonary edema normal siloet Echo Ejection fraction 45% LVE 6.3 Assessment/Plan - Problem List (1) Ventricular arrhythmia Impression: EKG today NSR (2) (spontaneous vaginal delivery) Impression: Progressing well (3) Left ventricular enlargement Impression: Pt is asymptomatic. (4) Ejection fraction < 50% Impression: Possible cardiomyopathy of Discussed with Internal medicine. Reviewed with MFM. Cardiology to see tomorrow.
[2017-10-12] MEDS: ACETAMINOPHEN 500 MG TABLET PO SCH ×3 (03:58→17:00)
[2017-10-12] MEDS: IBUPROFEN 800 MG TABLET PO SCH ×3 (03:59→16:00)
[2017-10-12] MEDS: METOPROLOL TARTRATE 25 MG TABLET PO SCH ×2 (04:04→10:19)
[2017-10-12] MEDS: DOCUSATE SODIUM 100 MG CAPSULE PO SCH (09:58)
[2017-10-12] MEDS: SODIUM CHLORIDE FLUSH 0.9% 10 ML SYRINGE IVP PRN (10:01)
[2017-10-12] MEDS: LISINOPRIL 5 MG TABLET PO SCH (10:19)
--- NOTE | 2017-10-12 13:04 | PROVIDER PROGRESS NOTE ---
Assessment/Plan - Problem List (1) Ventricular arrhythmia Assessment/Plan: I took over today as the patient's Consulting Internal Medicine provider. She was not put on telemetry yesterday, after Dr Salomon's consult, therefore, there is no data on frequency of venytricular ectopy over night (during sleep), or with ADLs and activity or if she gets even more dangerous arrhythmias. She does not feel her ectopy. She underwent a monitored Allen-protocol treadmill stress test today (with Echo) , to assess her symptoms and LV response to stress. She achieved a good target HR of 85% predicted max HR for age, 10 METS, had no significant symptoms, and her ventricular ectopy was suppressed with exercise (a healthy sign). The EKG showed no ischemic changes. The Echo portion of the report is to be read by a different provider. She can be discharged today, with low dose B-kya and needs outpatient Cardiology F/U within 1week, which was already discussed with Edilberto vera, by Geology Associate Esme this am. Activity should be as tolerated. (2) Cardiomyopathy Assessment/Plan: The final Echo report and CT chest report showed LV and RV enlargement, depressed LVEF of 40-45%, and there is also RVH with normal PA pressure. 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 She needs Cardiology F/U to assure that the Cardiomyopathy reverses, to adjust Meds and to have further evaluation with a Sleep study, MARY and/or cardiac catheterization for evaluation for a congenital heart defect (intra-cardiac shunt). (3) RVH (right ventricular hypertrophy) Assessment/Plan: The patient is a non-smoker who never smoked and denies pulmonary disease ( asthma), but she has never been tested for sleep apnea or a congenital intra- cardiac shunt. She needs Cardiology F/U after [facility]. - Current Meds Current Meds: Current Medications Generic Name Dose Route Start Last Admin Trade Name Freq PRN Reason Stop Dose Admin Acetaminophen 1,000 mg 10/11/17 01:00 10/12/17 03:58 Tylenol PO 1,000 mg Q8H ROSA MARIA Administration Docusate Sodium 100 mg 10/11/17 09:00 10/12/17 09:58 Colace 100mg Capsule PO 100 mg BID ROSA MARIA Administration Hydrocortisone/Pramoxine 1 spray 10/11/17 00:05 10/11/17 00:25 Epifoam VT 20 spray QID PRN Administration Hemorrhoids Lactated Ringer's 1,000 mls @ 150 mls/hr 10/10/17 21:00 10/11/17 00:00 Lr IV Infused .[id number] ROSA MARIA Infusion Ibuprofen 800 mg 10/11/17 01:00 10/12/17 09:58 Motrin PO 800 mg Q6H ROSA MARIA Administration Lisinopril 5 mg 10/11/17 14:00 10/12/17 10:19 Zestril PO Not Given DAILY ROSA MARIA Metoprolol Tartrate 25 mg 10/11/17 14:00 10/12/17 10:19 Lopressor PO Not Given BID ROSA MARIA Sodium Chloride 10 ml 10/10/17 20:06 10/12/17 10:01 Normal Saline Flush 0.9% IVP 10 ml PRN PRN Administration NEEDED PER PROVIDER ORDERS Sodium Chloride 10 ml 10/11/17 01:00 10/11/17 09:16 Normal Saline Flush 0.9% IVP Not Given 0100,0900,1700 ROSA MARIA Witch Brandy/Glycerin 1 each 10/11/17 00:05 10/11/17 00:25 Tucks TOP 1 each QID PRN Administration Hemorrhoids - Lab Result Fish Bone Diagrams: 10/10/17 20:30 10/10/17 18:13 - EKG Results EKG Interpreted Independently: Yes EKG Comparison: Unchanged from prior EKG - Additional Planning My Orders: My Active Orders 10/12/17 09:05 Stress Echo w/Definity [ECHO] Routine 10/12/17 Lunch DIET [Regular Diet] [DIET] Subjective - Subjective Patient Reports: No Complaints Nursing Reports: Other (HR at rest was 55-60 and Metoprolol and BRENDA-I were held this am) Objective Vital Signs: Vital Signs - 24 hr 10/11/17 10/11/17 10/12/17 18:00 19:46 00:27 Temperature 36.8 C 37 C Heart Rate [ Apical] Heart Rate [ 94 89 62 Brachial] Respiratory 20 16 16 Rate Blood Pressure Blood Pressure 126/69 107/81 H 105/54 L [Right Brachial artery] O2 Saturation 100 100 100 10/12/17 10/12/17 10/12/17 04:02 04:04 08:45 Temperature 37 C 37 C Heart Rate [ 52 L Apical] Heart Rate [ 75 86 Brachial] Respiratory 16 18 Rate Blood Pressure 101/64 Blood Pressure 101/64 109/60 [Right Brachial artery] O2 Saturation 100 100 10/12/17 10/12/17 10/12/17 10:00 10:19 12:22 Temperature Heart Rate [ 62 56 L Apical] Heart Rate [ Brachial] Respiratory 16 16 Rate Blood Pressure 109/60 Blood Pressure 109/67 122/72 [Right Brachial artery] O2 Saturation 100 100 Oxygen O2 Source Room air I&O (Last 24 Hrs): Intake and Output Totals x24h 10/10/17 10/11/17 10/12/17 23:59 23:59 23:59 Intake Total 1050.00 1646.667 Output Total 750 580 Balance 300.00 1066.667 General: Alert, Oriented x3 HEENT: Atraumatic, Mucous membr. moist/pink Neck: Supple, No JVD Neuro: Non Focal Cardiovascular: No murmurs, Other (Frequent ectopy) Respiratory: No respiratory distress, Breath sounds nml Extremities: No edema - Results Results: Laboratory Results WBC 14.4 x10^3/uL (4.8-10.8) H 10/10/17 20:30 RBC 3.99 10^6/uL (4.20-5.40) L 10/10/17 20:30 Hgb 12.3 g/dL (12.0-16.0) 10/10/17 20:30 Hct 36.3 % (37.0-47.0) L 10/10/17 20:30 MCV 91.0 fL (81.0-99.0) 10/10/17 20:30 MCH 30.8 pg (27.0-31.0) 10/10/17 20:30 MCHC 33.8 g/dL (32.0-36.0) 10/10/17 20:30 RDW 14.2 % (12.0-15.0) 10/10/17 20:30 Plt Count 171 10^3/uL (130-450) 10/10/17 20:30 MPV 9.7 fL (7.9-10.8) 10/10/17 20:30 Neut # (Auto) 12.7 10^3/uL (1.5-6.6) H 10/10/17 20:30 Lymph # (Auto) 0.9 10^3/uL (1.5-3.5) L 10/10/17 20:30 [place] # (Auto) 0.7 10^3/uL (0.0-1.0) 10/10/17 20:30 Eos # (Auto) 0.0 10^3/uL (0.0-0.7) 10/10/17 20:30 Baso # (Auto) 0.1 10^3/uL (0.0-0.1) 10/10/17 20:30 Absolute Nucleated RBC 0.00 x10^3/uL 10/10/17 20:30 Nucleated RBC % 0.0 /100WBC 10/10/17 20:30 Sodium 133 mmol/L (135-145) L 10/10/17 18:13 Potassium 3.5 mmol/L (3.5-5.0) 10/10/17 18:13 Chloride 104 mmol/L (101-111) 10/10/17 18:13 Carbon Dioxide 22 mmol/L (21-32) 10/10/17 18:13 Anion Gap 7.0 (6-13) 10/10/17 18:13 BUN 5 mg/dL (6-20) L 10/10/17 18:13 Creatinine 0.6 mg/dL (0.4-1.0) 10/10/17 18:13 Estimated GFR (MDRD) 150 (>89) 10/10/17 18:13 Glucose 94 mg/dL (70-100) 10/10/17 18:13 Calcium 8.8 mg/dL (8.5-10.3) 10/10/17 18:13 Phosphorus 3.5 mg/dL (2.5-4.6) 10/10/17 18:13 Magnesium 2.0 mg/dL (1.7-2.8) 10/10/17 18:13 Total Bilirubin 0.8 mg/dL (0.2-1.0) 10/10/17 18:13 AST 20 IU/L (10-42) 10/10/17 18:13 ALT 15 IU/L (10-60) 10/10/17 18:13 Alkaline Phosphatase 96 IU/L (42-121) 10/10/17 18:13 Troponin I < 0.04 ng/mL (<0.49) 10/12/17 01:00 B-Natriuretic Peptide 96 pg/mL (5-100) 10/11/17 13:20 Total Protein 7.1 g/dL (6.7-8.2) 10/10/17 18:13 Albumin 3.3 g/dL (3.2-5.5) 10/10/17 18:13 Globulin 3.8 g/dL (2.1-4.2) 10/10/17 18:13 Albumin/Globulin Ratio 0.9 (1.0-2.2) L 10/10/17 18:13 TSH 1.09 uIU/mL (0.34-5.60) 10/10/17 18:13 Blood Type O POSITIVE 10/10/17 18:13 Blood Type Recheck O POSITIVE 10/10/17 20:30 Antibody Screen NEGATIVE 10/10/17 18:13 Crossmatch IS Only See Detail 10/10/17 18:13
--- NOTE | 2017-10-12 15:34 | CARDIAC PROCEDURE NOTE ---
DATE OF SERVICE: 10/12/2017 Physician: Maddy Ventura MD This is a 22-year-old black female who is 2 days status post delivery of a healthy baby. She has had shortness of breath since mid-. She was noted to have frequent ventricular ectopy, bigeminy, and trigeminy during this admission for delivery. She did have episodes of chest pain postdelivery as well. Family history is positive for 1 nephew with a congenital heart defect requiring surgery in infancy. INDICATION FOR TEST: Cardiomyopathy seen on Echo done yesterday, chest pain, dyspnea on exertion, frequent PVCs. Resting EKG: Normal sinus rhythm, PVCs in a trigeminy and bigeminy pattern, left atrial and right atrial enlargement, LVH voltage, RVH voltage. STRESS TEST: The patient performed treadmill exercise after signing informed consent. Patient exercised for 8 minutes and 42 seconds using a Allen protocol. She reached a peak heart rate of 167 (85% predicted maximum predicted heart rate for age), 10.16 METS. Resting blood pressure 108/60, peak blood pressure 165/70. During stage II, ventricular ectopy decreased and then was not present at higher heart rates. The patient had resting echo pictures and at peak exercise performed. SYMPTOMS: None. Peak EKG: No new ST segment changes noted. ventricular ectopy returned during recovery period. IMPRESSION: Good aerobic tolerance. Suppression of ectopy with exercise, which is a good ventricular response. No symptoms of chest pain or shortness of breath. No ischemic EKG changes. Echo images reported separately. TD: 10/12/2017 13:08 PASCUAL
--- NOTE | 2017-10-12 16:27 | Discharge Plan ---
Discharge Plan Disposition: 01 Home, Self Care Condition: Stable Diet: Regular Activity Restrictions: Activity as Tolerated Shower Restrictions: No Driving Restrictions: No Additional Instructions or Follow Up instructions: Cardiology appointment is being arranged through [facility]. Patient should see her general medical doctor in the [place] within 4 weeks. Patient to see Dr. Rivera in 1 week Patient to follow-up with midwBruna jefferson in 2 weeks No Smoking: If you smoke, Please STOP! Call for help. Follow-up with: Cordell Rivera MD [Provider Admit Priv/Credential] - Bruna Conde CNM, SHRUTHI [Primary Care Provider] - 2 Weeks
--- NOTE | 2017-10-12 16:31 | PROVIDER PROGRESS NOTE ---
Subjective - Prog Note Date Prog Note Date: 10/12/17 Prog Note Time: 14:30 - Subjective Pt reports feeling: Improved Subjective: Patient feels well and is been able to ambulate and do self-care functions without difficulty. No chest pain, palpitations or shortness of breath. Mild non-foul lochia. Pain controlled with Motrin alone. Objective - Vital Signs/Intake & Output Vital Signs: Vital Signs x48h Temp Pulse Pulse Resp BP BP Pulse Ox 10/12/17 12:22 56 L 16 122/72 100 10/12/17 10:19 109/60 10/12/17 10:00 62 16 109/67 100 10/12/17 08:45 98.6 F 52 L 86 18 109/60 100 Intake & Output: Intake & Output 10/09/17 10/10/17 10/11/17 10/12/17 23:59 23:59 23:59 23:59 Intake Total 1050.00 1646.667 Output Total 750 580 Balance 300.00 1066.667 - Lab Results Fish Bones: 10/10/17 20:30 10/10/17 18:13 Other Labs: Lab Results x24hrs 10/12/17 10/11/17 Range/Units 01:00 18:56 Troponin I < 0.04 < 0.04 (<0.49) ng/mL Physical Exam - Physical Exam General: positive: No acute distress, Well developed/nourished, Alert HEENT: positive: Moist mucous membranes Neck: positive: Supple w/out meningeal sx Cardiac: positive: Regular Rate, Regular Rhythm, Normal pulses Resipratory: positive: Clear to ausultation tyler Abdomen: positive: Normal Bowel sounds Female : positive: Enlarged uterus (Uterus enlarged 16-17 weeks, firm nontender Lochia reported scant non-foul) Extremities: positive: Normal ROM Skin: positive: Warm and dry Neurologic: positive: Alert and Oriented X 3, Normal motor/no weakness, Normal Sensation, Normal Speech Assessment/Plan - Assessment/Plan Assessment: Patient noted to have cardiac dysrhythmia during the course of labor and immediately thereafter. Currently she is asymptomatic and the dysrhythmia is temporarily subsided. Internal medicine has evaluated her and recommended a beta-kya. Thorough cardiology evaluation will be required. Patient seems stable and desires discharge. Plan: Discharge today. Prior to discharge ensure there is follow-up with cardiology, obstetrics, and general physician. Prescription for pain relievers written and the appropriate beta-kya will be selected by hospitalist prior to discharge. Prior to discharge emphasized the usual obstetrical cautions (bleeding, fever, calf pain, abdominal pain and foul discharge). Additionally emphasized the need to immediately report chest pain sustained irregular heartbeat and shortness of breath. Formal discharge summary dictated, obstetrical medications written
[2017-10-12] MEDS ORDERED: METOPROLOL SUCCINATE 25 MG TABLET PO SCH (18:00)
[2017-10-12 18:28] VITALS: BP 110/68
--- NOTE | 2017-10-13 07:38 | DISCHARGE SUMMARY ---
Physician: Cordell Car MD DATE OF ADMISSION: 10/10/2017 DATE OF DISCHARGE: 10/12/2017 DIAGNOSES 1. A 39-week, 2-day gestation, in active labor. 2. Cardiac dysrhythmia. 3. Bigeminy/trigeminy. PROCEDURE: Spontaneous vaginal delivery of a living male infant, minor laceration repair. CONSULTS 1. Dr. Cordell Rivera, Obstetrics. 2. Drs. Salomon and Maddy Ventura, Hospitalist service. COMPLICATIONS: None. Patient is a 22-year-old, primigravida who presented in active labor. She was in advanced dilation and close to delivery. During the workup, irregular heartbeat was noted, with occasional resultant bradycardia and low blood pressure. She was not symptomatic. Fetus was category 1, in the 130s. She went on to uneventfully deliver with Bruna Conde, with a loose nuchal cord. A living male was born weighing 7 pounds 1 ounce and scoring Apgars of 9/9. Total blood loss was 400. Dr. Rivera was called into initial consultation, and her heart rate was in the 20s to 30s, with unifocal PVCs in a bigeminy type pattern. There was an enlarged left ventricle with an ejection fraction of 45%. Post-delivery hemoglobin was 12.4 with mild hyponatremia. Hospitalist was then brought into consultation. She was given 2 grams of magnesium sulfate and 25 mg of Lopressor. Consultation with Dr. Sullivan at [facility] was made and the case reviewed. She was not a candidate for transfer. Reference Dr. Rivera's note. On the , Dr. Salomon was brought into consultation. Reference his detailed note on her cardiac status. Serial troponins were obtained, which were negative, and the patient was started on mini-dose aspirin. CT scan of the lungs ruled out a pulmonary embolism. Echo again confirmed ejection fraction of 40% to 45% with left ventricular enlargement. The changes on echo suggested chronic problems. BPN was obtained, as well as a chest x-ray. Patient was placed on telemetry. 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 Obstetrically, the patient did well with a postdelivery hemoglobin of 12.3. Blood type was O positive; therefore, RhoGAM was not required. On the , Dr. Ventura evaluated the patient. She found patient to be stable and recommended beta kya prior to discharge. Patient was able to ambulate and do self-care functions. The patient was prepared for discharge. Warning sign and callback instructions were reviewed. DISCHARGE MEDICATIONS 1. Acetaminophen 1000 q.8 hours p.r.n. for pain. 2. Colace 250 b.i.d. for stool. 3. Lisinopril 5 mg daily. 4. Beta kya, yet to be named. 5. Epifoam. FOLLOWUP: Patient will see a physician staff in 1 week. Arrangements are being made for cardiac followup through the [facility] TD: 10/12/2017 16:30 PASCUAL
== END 2017-10-12 18:20 | disposition home or self-care (01) | DRG 774 ==
LOC: WFO 17:53 → FBP 17:55 → WFO 18:34 → INTOOBSV 18:56 → OBSVTOIN 18:56 → FBP 19:02
PROVIDERS: ADMIT Nurse Practitioner Obstetrics & Gynecology; ATTEND Obstetrics & Gynecology
PROC: 10907ZC Drainage of Amniotic Fluid, Therapeutic from Products of Conception, Via Natural or Artificial Opening (ICD-10-PCS; 2017-10-10)
PROC: 10E0XZZ Delivery of Products of Conception, External Approach (ICD-10-PCS; principal; 2017-10-11)
PROC: 0HQ9XZZ Repair Perineum Skin, External Approach (ICD-10-PCS; 2017-10-11)
DX: O99.42 Diseases of the circulatory system complicating childbirth (principal); I50.20 Unspecified systolic (congestive) heart failure; I49.8 Other specified cardiac arrhythmias; O70.0 First degree perineal laceration during delivery; O69.81X0 Labor and delivery complicated by cord around neck, without compression, not applicable or unspecified; Z3A.39 39 weeks gestation of pregnancy; Z37.0 Single live birth
CPT/HCPCS: 36415; 71046; 71275; 80053; 81001; 83735; 83880; 84100; 84443; 84484; 85025; 86850; 86900; 86901; 86920; 87086; 93005; 93306; 93350; 96365; 96372; 99214

== ENCOUNTER 2018-01-13 07:48 | Emergency (ER) | payer OTHER ==
--- NOTE | 2018-01-13 08:23 | ED Physician Documentation ---
PD HPI DYSPNEA - Stated complaint Stated Complaint: CHEST PX/SOA - Chief complaint Chief Complaint: Cardiac - History obtained from History obtained from: Patient - History of Present Illness Timing - onset: Last night Timing - onset during: Rest Timing - duration: Hours Timing - details: Gradual onset, Still present Inciting event(s): Exercise Improved by: Rest Worsened by: Exertion Associated symptoms: Chest pain / discomfort, Palpitations. No: Fever, Cough, Hemoptysis, Wheezing, Diaphoresis, Bilateral edema, Unilateral edema, Anxiety Similar symptoms before: Diagnosis (cardiomyopathy and arrhythmia) Recently seen: Not recently seen - Additional information Additional information: 22-year-old female who developed cardiomyopathy during her delivered in September and she has had 2 other episodes of chest pain and shortness of breath and has been evaluated for these in an emergency department in [place] and here. She does see a professional driver at [facility]. The patient notes that yesterday she felt a little lightheaded but she believes she drank the usual amount of fluids. She usually drinks bottled water only and believes she drank 6 bottles yesterday. 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 She reports today that she feels some better with a deep breath. Review of Systems Constitutional: denies: Fever, Chills Eyes: denies: Decreased vision Ears: denies: Ear pain Nose: denies: Rhinorrhea / runny nose, Congestion Throat: denies: Sore throat Cardiac: reports: Chest pain / pressure, Palpitations. denies: Pedal edema, Calf pain Respiratory: reports: Dyspnea. denies: Cough, Wheezing GI: denies: Abdominal Pain, Nausea, Vomiting : denies: Dysuria, Frequency PD PAST MEDICAL HISTORY - Past Medical History Cardiovascular: Congestive heart failure Respiratory: None Endocrine/Autoimmune: None - Past Surgical History Past Surgical History: Yes General: Other - Present Medications Home Medications: Ambulatory Orders Medication Instructions Recorded Confirmed Albuterol Sulfate [Proair Hfa 2 puffs INH Q4H PRN 10/12/17 10/12/17 Inhaler] Metoprolol Succinate [Toprol Xl] 12.5 mg PO DAILY #15 tablet 10/12/17 Vits96/Iron Fum/Folic 1 tape PO DAILY 10/12/17 10/12/17 [ Tablet] - Allergies Allergies/Adverse Reactions: Allergies Allergy/AdvReac Type Severity Reaction Status Date / Time No Known Drug Allergies Allergy Verified 01/13/18 07:57 - Social History Does the pt smoke?: No Smoking Status: Never smoker Does the pt drink ETOH?: No Does the pt have substance abuse?: No - Immunizations Immunizations are current?: Yes - POLST Patient has POLST: No POLST Status: Full Code PD ED PE NORMAL - Vitals Vital signs reviewed: Yes (mild hypertension ) - General General: Alert and oriented X 3, No acute distress, Well developed/nourished - HEENT HEENT: Atraumatic, PERRL, EOMI - Neck Neck: Supple, no meningeal sign, No bony TTP - Cardiac Cardiac: RRR, No murmur - Respiratory Respiratory: No respiratory distress, Clear bilaterally - Abdomen Abdomen: Soft, Non tender - Back Back: No CVA TTP, No spinal TTP - Derm Derm: Normal color, Warm and dry, No rash - Extremities Extremities: No deformity, No edema - Neuro Neuro: Alert and oriented X 3, lead sustainability specialist 2-12 intact, No motor deficit, No sensory deficit, Normal speech Eye Opening: Spontaneous Motor: Obeys Commands Verbal: Oriented GCS Score: 15 - Psych Psych: Normal mood, Normal affect Results - Vitals Vitals: Vital Signs - 24 hr 01/13/18 01/13/18 01/13/18 07:54 08:38 10:13 Temperature 36.0 C L Heart Rate 77 81 57 L Respiratory 16 14 16 Rate Blood Pressure 134/69 H 118/71 131/88 H O2 Saturation 100 100 100 01/13/18 01/13/18 11:06 12:12 Temperature Heart Rate 52 L 60 Respiratory 14 16 Rate Blood Pressure 112/75 115/84 H O2 Saturation 100 100 Oxygen O2 Source Room air Oxygen Flow Rate 1 - EKG (time done) 0755 Rate: Rate (enter#) (66) Rhythm: NSR [place]: LAD Ischemia: Other (borderline ST elevation V1/2) Compare to prior EKG: Changed from prior EKG (SPT 10-10-17 frequent PVC's have resolved and the heart rate has decreased. ) Computer interpretation: Agree with computer - Labs Labs: Laboratory Tests 01/13/18 01/13/18 01/13/18 08:20 08:20 08:20 WBC 6.0 RBC 4.20 Hgb 12.5 Hct 37.4 MCV 89.1 MCH 29.8 MCHC 33.4 RDW 13.2 Plt Count 187 MPV 9.7 Neut # (Auto) 4.4 Lymph # (Auto) 1.1 L [place] # (Auto) 0.4 Eos # (Auto) 0.1 Baso # (Auto) 0.1 Absolute Nucleated RBC 0.00 Nucleated RBC % 0.0 Sodium 133 L Potassium 3.9 Chloride 103 Carbon Dioxide 24 Anion Gap 6.0 BUN 12 Creatinine 0.8 Estimated GFR (MDRD) 108 Glucose 76 Calcium 8.7 Total Bilirubin 0.6 AST 23 ALT 19 Alkaline Phosphatase 86 Troponin I < 0.04 B-Natriuretic Peptide Total Protein 7.8 Albumin 3.9 Globulin 3.9 Albumin/Globulin Ratio 1.0 Lipase 30 Urine Color Urine Clarity Urine pH Ur Specific [place] Urine Protein Urine Glucose (UA) Urine Ketones Urine Occult Blood Urine Nitrite Urine Bilirubin Urine Urobilinogen Ur Leukocyte Esterase Urine RBC Urine WBC Ur Squamous Epith Cells Urine Bacteria Ur Microscopic Review Urine Culture Comments Urine HCG, Qual 01/13/18 01/13/18 08:20 09:40 WBC RBC Hgb Hct MCV MCH MCHC RDW Plt Count MPV Neut # (Auto) Lymph # (Auto) [place] # (Auto) Eos # (Auto) Baso # (Auto) Absolute Nucleated RBC Nucleated RBC % Sodium Potassium Chloride Carbon Dioxide Anion Gap BUN Creatinine Estimated GFR (MDRD) Glucose Calcium Total Bilirubin AST ALT Alkaline Phosphatase Troponin I B-Natriuretic Peptide 30 Total Protein Albumin Globulin Albumin/Globulin Ratio Lipase Urine Color LT RED Urine Clarity HAZY Urine pH 6.5 Ur Specific [place] 1.025 Urine Protein NEGATIVE Urine Glucose (UA) NEGATIVE Urine Ketones NEGATIVE Urine Occult Blood LARGE H Urine Nitrite NEGATIVE Urine Bilirubin NEGATIVE Urine Urobilinogen 0.2 (NORMAL) Ur Leukocyte Esterase NEGATIVE Urine RBC TNTC H Urine WBC 0-3 Ur Squamous Epith Cells RARE Squamous Urine Bacteria Rare Ur Microscopic Review INDICATED Urine Culture Comments NOT INDICATED Urine HCG, Qual NEGATIVE - Rads (name of study) 1 view chest Radiology: Prelim report reviewed (Impression: Normal single view chest.), EMP read indepedently, See rad report Procedures - IVC sono (time) 0815 Bedside IVC sono: IVC measures (cm) (1.22), IVC collapsed c insp (cm) (complete), Dehydration (est 1 liter deficit) PD MEDICAL DECISION MAKING - ED course Complexity details: reviewed old records, reviewed results, re-evaluated patient, considered differential, d/w patient ED course: 22-year-old female with a history of cardiomyopathy following has developed chest pain and dyspnea similar to what she has had previous episodes. She today is found to have mild dehydration on interrogation of the inferior vena cava and she is replaced with 1 L of saline. I am concerned about diastolic dysfunction and dehydration contributing to poor perfusion. She has no symptoms after hydration. Departure - Departure Disposition: 01 Home, Self Care Clinical Impression: Dehydration Condition: Stable Instructions: ED Dehydration Follow-Up: JUNITO Napoles [Provider Group] Comments: Today we found that you are mildly dehydrated and required some IV hydration. I suspect this may cause some problem when you are heart is not completely filled. Follow-up with your professional driver as previously planned. Discharge Date/Time: 01/13/18 12:14
[2018-01-13 08:24] LABS: BASOPHILS # (AUTO) 0.1 10^3/uL (0.0-0.1); BASOPHILS % (AUTO) 0.9 %; EOSINOPHILS # (AUTO) 0.1 10^3/uL (0.0-0.7); EOSINOPHILS % (AUTO) 1.2 %; HGB - HEMOGLOBIN 12.5 g/dL (12.0-16.0); LYMPHOCYTES # (AUTO) 1.1 10^3/uL (1.5-3.5); LYMPHOCYTES % (AUTO) 18.1 %; MEAN CORPUSCULAR HEMOGLOBIN 29.8 pg (27.0-31.0); MEAN CORPUSCULAR HGB CONC 33.4 g/dL (32.0-36.0); MEAN CORPUSCULAR VOLUME 89.1 fL (81.0-99.0); MEAN PLATELET VOLUME 9.7 fL (7.9-10.8); MONOCYTES # (AUTO) 0.4 10^3/uL (0.0-1.0); NEUTROPHILS # (AUTO) 4.4 10^3/uL (1.5-6.6); NEUTROPHILS % (AUTO) 72.8 %; PLT - PLATELET COUNT 187 10^3/uL (130-450); RED CELL DISTRIBUTION WIDTH 13.2 % (12.0-15.0)
[2018-01-13] MEDS: SODIUM CHLORIDE 0.9% 1,000 ML IV ONE (08:35)
[2018-01-13 08:37] LABS: ALBUMIN 3.9 g/dL (3.2-5.5); BILIRUBIN,TOTAL 0.6 mg/dL (0.2-1.0); CALCIUM 8.7 mg/dL (8.5-10.3); CREATININE 0.8 mg/dL (0.4-1.0); TOTAL PROTEIN 7.8 g/dL (6.7-8.2)
--- NOTE | 2018-01-13 08:40 | XRAY Report ---
Reason: chest pain Procedure Date: 01/13/2018 Accession Number: [id number] / [id number] Procedure: XR - Chest 1 View X-Ray CPT Code: 72358 FULL RESULT: EXAM: CHEST RADIOGRAPHY EXAM DATE: 01/13/2018 08:27 AM. CLINICAL HISTORY: Chest pain. COMPARISON: Chest 2 view 10/11/2017 1:01 PM. TECHNIQUE: 1 view. FINDINGS: Lungs/Pleura: No focal opacities evident. No pleural effusion. No pneumothorax. Mediastinum: Within exam limitations, the cardiomediastinal contour is normal. Other: None. IMPRESSION: Normal single view chest. RADIA
[2018-01-13 09:58] LABS: BILIRUBIN,URINE NEGATIVE (NEGATIVE); GLUCOSE, URINE (UA) NEGATIVE (NEGATIVE); KETONES,URINE (UA) NEGATIVE (NEGATIVE); LEUKOCYTE ESTERASE, URINE NEGATIVE (NEGATIVE); NITRITE,URINE NEGATIVE (NEGATIVE); OCCULT BLOOD,URINE LARGE (NEGATIVE); PH,URINE 6.5 PH (5.0-7.5); PROTEIN,URINE NEGATIVE (NEGATIVE); UROBILINOGEN,URINE 0.2 (NORMAL) E.U./dL (NORMAL)
[2018-01-13 09:59] LABS: CLARITY,URINE HAZY (CLEAR)
[2018-01-13 10:02] LABS: HCG UR QUAL NEGATIVE
[2018-01-13 10:08] LABS: RBC,URINE TNTC /HPF (0-5); SQUAMOUS EPITHELIAL CELL,UR RARE Squamous (<= Few)
[2018-01-13 10:09] LABS: BACTERIA,URINE Rare /HPF (None Seen)
[2018-01-13 12:14] VITALS: BP 115/84
== END 2018-01-13 12:14 | disposition home or self-care (01) ==
LOC: ED 07:48
DX: E86.0 Dehydration (principal); R94.31 Abnormal electrocardiogram [ECG] [EKG]; R07.9 Chest pain, unspecified; R06.02 Shortness of breath
CPT/HCPCS: 36415; 71045; 80053; 81001; 81003; 81025; 83690; 83880; 84484; 85025; 85610; 85730; 86850; 86900; 86901; 87086; 93005; 96360; 96361; 99284

== ENCOUNTER 2018-02-18 07:19 | Emergency (ER) | payer OTHER ==
[2018-02-18 07:57] LABS: BASOPHILS % (AUTO) 0.2 %; EOSINOPHILS % (AUTO) 0.3 %; HGB - HEMOGLOBIN 12.4 g/dL (12.0-16.0); LYMPHOCYTES # (AUTO) 0.3 10^3/uL (1.5-3.5); MEAN CORPUSCULAR HEMOGLOBIN 29.1 pg (27.0-31.0); MEAN CORPUSCULAR HGB CONC 33.8 g/dL (32.0-36.0); MEAN CORPUSCULAR VOLUME 86.2 fL (81.0-99.0); MEAN PLATELET VOLUME 10.1 fL (7.9-10.8); MONOCYTES # (AUTO) 0.5 10^3/uL (0.0-1.0); MONOCYTES % (AUTO) 6.8 %; NEUTROPHILS % (AUTO) 88.7 %; PLT - PLATELET COUNT 181 10^3/uL (130-450); RED BLOOD COUNT 4.25 10^6/uL (4.20-5.40); RED CELL DISTRIBUTION WIDTH 13.5 % (12.0-15.0); WHITE BLOOD COUNT 7.9 x10^3/uL (4.8-10.8)
[2018-02-18] MEDS ORDERED: ONDANSETRON 4 MG/2 ML VIAL IVP STA (08:13)
[2018-02-18] MEDS ORDERED: KETOROLAC 30 MG/ML VIAL IVP STA (08:13)
[2018-02-18 08:20] LABS: ALBUMIN 3.9 g/dL (3.2-5.5); ALBUMIN/GLOBULIN RATIO 0.9 (1.0-2.2); BILIRUBIN,TOTAL 1.1 mg/dL (0.2-1.0); CALCIUM 8.6 mg/dL (8.5-10.3); CREATININE 0.8 mg/dL (0.4-1.0); TOTAL PROTEIN 8.1 g/dL (6.7-8.2)
[2018-02-18 08:39] LABS: BILIRUBIN,URINE NEGATIVE (NEGATIVE); GLUCOSE, URINE (UA) NEGATIVE (NEGATIVE); KETONES,URINE (UA) NEGATIVE (NEGATIVE); LEUKOCYTE ESTERASE, URINE TRACE (NEGATIVE); NITRITE,URINE NEGATIVE (NEGATIVE); OCCULT BLOOD,URINE NEGATIVE (NEGATIVE); PH,URINE 6.5 PH (5.0-7.5); PROTEIN,URINE NEGATIVE (NEGATIVE); UROBILINOGEN,URINE 0.2 (NORMAL) E.U./dL (NORMAL)
[2018-02-18 08:42] LABS: CLARITY,URINE CLEAR (CLEAR)
[2018-02-18 08:50] LABS: BACTERIA,URINE Rare /HPF (None Seen); HCG UR QUAL NEGATIVE; RBC,URINE 0-5 /HPF (0-5); SQUAMOUS EPITHELIAL CELL,UR MOD Squamous (<= Few)
--- NOTE | 2018-02-18 09:32 | ED Physician Documentation ---
PD HPI ABD PAIN - Stated complaint Stated Complaint: VOMITING - Chief complaint Chief Complaint: Abd Pain - History obtained from History obtained from: Patient - History of Present Illness Timing - onset: Yesterday Timing - duration: Days (1) Timing - details: Still present Location: Periumbilical Associated symptoms: Diarrhea Similar symptoms before: Has not had sx before - Additional information Additional information: The patient is a 23-year-old female who presents with periumbilical abdominal pain that started yesterday after eating a salad. She describes it as cramping pain, and has had associated vomiting and diarrhea consisting of 2 episodes of loose stool. She denies fever, dysuria, or back pain. Her last menstrual period was 2 and half weeks ago. She denies history of similar symptoms in the past. Review of Systems Constitutional: denies: Fever Ears: denies: Tinnitus/ringing Nose: denies: Congestion Throat: denies: Sore throat Cardiac: denies: Chest pain / pressure Respiratory: denies: Dyspnea, Cough GI: reports: Abdominal Pain, Nausea, Vomiting, Diarrhea : reports: LMP (2.5 weeks ago.). denies: Dysuria Skin: denies: Rash Musculoskeletal: denies: Back pain Neurologic: denies: Headache PD PAST MEDICAL HISTORY - Past Medical History Cardiovascular: Congestive heart failure Respiratory: None Endocrine/Autoimmune: None - Past Surgical History Past Surgical History: Yes General: Other - Present Medications Home Medications: Ambulatory Orders Medication Instructions Recorded Confirmed Albuterol Sulfate [Proair Hfa 2 puffs INH Q4H PRN 10/12/17 10/12/17 Inhaler] Metoprolol Succinate [Toprol Xl] 12.5 mg PO DAILY #15 tablet 10/12/17 Vits96/Iron Fum/Folic 1 tape PO DAILY 10/12/17 10/12/17 [ Tablet] Promethazine [Phenergan] 25 mg PO Q6H PRN #10 tab 02/18/18 - Allergies Allergies/Adverse Reactions: Allergies Allergy/AdvReac Type Severity Reaction Status Date / Time No Known Drug Allergies Allergy Verified 02/18/18 07:41 - Social History Does the pt smoke?: No Smoking Status: Never smoker Does the pt drink ETOH?: No Does the pt have substance abuse?: No - Immunizations Immunizations are current?: Yes - POLST Patient has POLST: No POLST Status: Full Code PD ED PE NORMAL - Vitals Vital signs reviewed: Yes (normal) - General General: Alert and oriented X 3, Well developed/nourished - HEENT HEENT: Atraumatic, Moist mucous membranes, Pharynx benign - Neck Neck: Supple, no meningeal sign, No adenopathy, No JVD - Cardiac Cardiac: RRR, No murmur - Respiratory Respiratory: No respiratory distress, Clear bilaterally - Abdomen Abdomen: Normal bowel sounds, Soft, Other (Minimal periumbilical discomfort to palpation, without rebound or guarding.) - Back Back: No CVA TTP - Derm Derm: No rash - Extremities Extremities: No edema, No calf tenderness / cord - Neuro Neuro: Alert and oriented X 3, No motor deficit, Normal speech Results - Vitals Vitals: Oxygen O2 Source Room air - Labs Labs: Laboratory Tests 02/18/18 02/18/18 02/18/18 07:45 07:45 08:30 WBC 7.9 RBC 4.25 Hgb 12.4 Hct 36.6 L MCV 86.2 MCH 29.1 MCHC 33.8 RDW 13.5 Plt Count 181 MPV 10.1 Neut # (Auto) 7.0 H Lymph # (Auto) 0.3 L [place] # (Auto) 0.5 Eos # (Auto) 0.0 Baso # (Auto) 0.0 Absolute Nucleated RBC 0.00 Nucleated RBC % 0.0 Sodium 132 L Potassium 3.6 Chloride 104 Carbon Dioxide 23 Anion Gap 5.0 L BUN 11 Creatinine 0.8 Estimated GFR (MDRD) 107 Glucose 92 Calcium 8.6 Total Bilirubin 1.1 H AST 22 ALT 24 Alkaline Phosphatase 78 Total Protein 8.1 Albumin 3.9 Globulin 4.2 Albumin/Globulin Ratio 0.9 L Lipase 22 Urine Color YELLOW Urine Clarity CLEAR Urine pH 6.5 Ur Specific [place] 1.020 Urine Protein NEGATIVE Urine Glucose (UA) NEGATIVE Urine Ketones NEGATIVE Urine Occult Blood NEGATIVE Urine Nitrite NEGATIVE Urine Bilirubin NEGATIVE Urine Urobilinogen 0.2 (NORMAL) Ur Leukocyte Esterase TRACE H Urine RBC 0-5 Urine WBC 4-5 Ur Squamous Epith Cells MOD Squamous H Urine Bacteria Rare Ur Microscopic Review INDICATED Urine Culture Comments NOT INDICATED Urine HCG, Qual 02/18/18 08:30 WBC RBC Hgb Hct MCV MCH MCHC RDW Plt Count MPV Neut # (Auto) Lymph # (Auto) [place] # (Auto) Eos # (Auto) Baso # (Auto) Absolute Nucleated RBC Nucleated RBC % Sodium Potassium Chloride Carbon Dioxide Anion Gap BUN Creatinine Estimated GFR (MDRD) Glucose Calcium Total Bilirubin AST ALT Alkaline Phosphatase Total Protein Albumin Globulin Albumin/Globulin Ratio Lipase Urine Color Urine Clarity Urine pH Ur Specific [place] 1.020 Urine Protein Urine Glucose (UA) Urine Ketones Urine Occult Blood Urine Nitrite Urine Bilirubin Urine Urobilinogen Ur Leukocyte Esterase Urine RBC Urine WBC Ur Squamous Epith Cells Urine Bacteria Ur Microscopic Review Urine Culture Comments Urine HCG, Qual NEGATIVE PD MEDICAL DECISION MAKING - ED course Complexity details: reviewed results, re-evaluated patient, considered differential, d/w patient ED course: The patient's presentation is most consistent with gastroenteritis versus food intolerance, or possible food poisoning. She is nontoxic, and her abdominal exam is benign. CBC, chemistry panel, and urinalysis are unremarkable. test is negative. Treatment in the emergency department included administration of ketorolac 30 mg IV and ondansetron 4 mg IV. Her symptoms improved with the above treatment and on repeat examination her abdomen remains benign. I discussed with her the expected course of illness, symptomatic treatment and outpatient follow-up, as well as potentially worrisome signs or symptoms that should prompt reevaluation in the emergency department. She is being discharged with a prescription for Phenergan. Departure - Departure Disposition: 01 Home, Self Care Clinical Impression: Abdominal pain Qualifiers: Abdominal location: periumbilical Qualified Code(s): R10.33 - Periumbilical pain Diarrhea Qualifiers: Diarrhea type: unspecified type Qualified Code(s): R19.7 - Diarrhea, unspecified Condition: Stable Instructions: ED Diet Vomiting Diarrhea Follow-Up: NEVILLE HOUGH MD [Physician No Access] - Prescriptions: Promethazine [Phenergan] 25 mg PO Q6H PRN #10 tab PRN Reason: Nausea / Vomiting Comments: Drink plenty of fluids. You can use Phenergan as prescribed if needed for nausea. Follow-up with your primary physician within 1 week if not completely resolved. Return to the emergency department if you develop increasing abdominal pain, persistent vomiting, or otherwise worsening symptoms. Forms: Activity restrictions Discharge Date/Time: 02/18/18 09:43
[2018-02-18 09:44] VITALS: BP 105/67
== END 2018-02-18 09:43 | disposition home or self-care (01) ==
LOC: ED 07:19
DX: R10.33 Periumbilical pain (principal); R19.7 Diarrhea, unspecified
CPT/HCPCS: 36415; 80053; 81001; 81003; 81025; 83690; 85025; 87086; 96374; 99283

== ENCOUNTER 2018-04-15 07:45 | Emergency (ER) | payer OTHER ==
[2018-04-15 07:59] VITALS: BP 129/85
[2018-04-15] MEDS ORDERED: IBUPROFEN 800 MG TABLET PO STA (08:09)
--- NOTE | 2018-04-15 08:43 | ED Physician Documentation ---
PD HPI HEENT - Stated complaint Stated Complaint: THROAT PX/COUGH,WYNN - Chief complaint Chief Complaint: Heent - History obtained from History obtained from: Patient - History of Present Illness Timing - onset: How many weeks ago (2) Timing - details: Still present Location: Throat Associated symptoms: Cough Similar symptoms before: Has not had sx before - Additional information Additional information: The patient is a 23-year-old female who presents with sore throat that started 2 weeks ago and has persisted since that time. She reports nonproductive cough and slight headache. She denies fever, chest pain, shortness of breath, nausea or vomiting. She started on lisinopril 4 weeks ago for cardiomyopathy. Review of Systems Constitutional: denies: Fever Eyes: denies: Irritation Ears: denies: Tinnitus/ringing Nose: reports: Congestion Throat: reports: Sore throat Cardiac: denies: Chest pain / pressure, Palpitations Respiratory: reports: Cough. denies: Dyspnea GI: denies: Abdominal Pain, Nausea, Vomiting : denies: Dysuria Skin: denies: Rash Musculoskeletal: denies: Extremity pain, Extremity swelling Neurologic: reports: Headache (mild). denies: Focal weakness, Numbness PD PAST MEDICAL HISTORY - Past Medical History Past Medical History: Yes Cardiovascular: Congestive heart failure Respiratory: None Endocrine/Autoimmune: None - Past Surgical History Past Surgical History: Yes General: Other - Present Medications Home Medications: Ambulatory Orders Medication Instructions Recorded Confirmed Metoprolol Succinate [Toprol Xl] 12.5 mg PO DAILY #15 tablet 10/12/17 Ibuprofen 800 mg PO TID PRN #30 tablet 04/15/18 Lisinopril 1 tab PO 04/15/18 - Allergies Allergies/Adverse Reactions: Allergies Allergy/AdvReac Type Severity Reaction Status Date / Time No Known Drug Allergies Allergy Verified 04/15/18 07:59 - Social History Does the pt smoke?: No Smoking Status: Never smoker Does the pt drink ETOH?: No Does the pt have substance abuse?: No - Immunizations Immunizations are current?: Yes - POLST Patient has POLST: No POLST Status: Full Code PD ED PE NORMAL - Vitals Vital signs reviewed: Yes (normal) - General General: Alert and oriented X 3, Well developed/nourished - HEENT HEENT: Atraumatic, Ears normal, Other (Oropharynx is mildly erythematous, without exudates.) - Neck Neck: Supple, no meningeal sign, No adenopathy - Cardiac Cardiac: RRR - Respiratory Respiratory: Clear bilaterally - Abdomen Abdomen: Soft, Non tender - Back Back: No CVA TTP - Derm Derm: No rash - Extremities Extremities: No edema, No calf tenderness / cord - Neuro Neuro: Alert and oriented X 3, No motor deficit, Normal speech Results - Vitals Vitals: Oxygen O2 Source Room air - Labs Labs: Microbiology 04/15/18 08:05 Group A Strep Throat Culture - Final Throat MIXED OROPHARYNGEAL ADITI PRESENT. NO BETA STREP PRESENT IN CULTURE. Laboratory Tests 04/15/18 08:05 Group A Strep Rapid Negative PD MEDICAL DECISION MAKING - ED course Complexity details: reviewed results, re-evaluated patient, considered differential, d/w patient ED course: The patient's presentation is most consistent with viral upper respiratory infection with cough. Rapid strep screen is negative. I do not think chest x- ray as clinically indicated, given her clinical presentation. The possibility of BRENDA inhibitor induced cough was considered, and remains in the differential diagnosis. However, given her associated symptoms of headache and congestion, I think viral etiology is the more likely. Treatment in the emergency department included administration of ibuprofen 800 mg orally. I discussed with her the expected course of illness, symptomatic treatment and outpatient follow-up, as well as potentially worrisome signs or symptoms that should prompt reevaluation in the emergency department. Departure - Departure Disposition: 01 Home, Self Care Clinical Impression: Viral URI with cough Condition: Stable Instructions: ED Upper Resp Infec No Abx Tx Follow-Up: JUNITO Gilbertjose de jesus Napoles [Provider Group] Prescriptions: Ibuprofen 800 mg PO TID PRN #30 tablet PRN Reason: Pain Comments: Your symptoms are most consistent with a viral upper respiratory infection. Antibiotics are not clinically indicated for this type of viral infection. Treatment should be geared toward managing symptoms: Drink plenty of fluids. Use Tylenol or ibuprofen as needed for fever or discomfort. Wash your hands frequently, and cover your cough. Follow up with your primary physician, or return to the emergency department, if not improving within 1-2 weeks. Return to the emergency department if you develop increasing difficulty breathing, or otherwise worsening symptoms. Forms: Activity restrictions Discharge Date/Time: 04/15/18 09:10
== END 2018-04-15 09:10 | disposition home or self-care (01) ==
LOC: ED 07:45
DX: J06.9 Acute upper respiratory infection, unspecified (principal); I42.9 Cardiomyopathy, unspecified
CPT/HCPCS: 87070; 87430; 99283; A9270

== ENCOUNTER 2018-09-18 08:47 | Emergency (ER) | payer OTHER ==
[2018-09-18 09:00] VITALS: BP 144/88
--- NOTE | 2018-09-18 09:07 | ED Physician Documentation ---
History of Present Illness - Stated complaint Stated Complaint: BUG BITE LT ARM - Chief complaint Chief Complaint: Wound - History obtained from History obtained from: Patient - History of Present Illness Timing: Yesterday Pain level max: 2 Pain level now: 2 - Additonal information Additional information: left upper arm redness, swelling, itching. Nothing makes it better or worse. She thinks that she was bitten by an insect. Review of Systems Constitutional: denies: Fever : denies: Now EGA Skin: denies: Rash Musculoskeletal: denies: Neck pain, Back pain Neurologic: denies: Headache PD PAST MEDICAL HISTORY - Past Medical History Past Medical History: Yes Cardiovascular: Congestive heart failure Respiratory: None Endocrine/Autoimmune: None - Past Surgical History Past Surgical History: Yes General: Other - Present Medications Home Medications: Ambulatory Orders Medication Instructions Recorded Confirmed Metoprolol Succinate [Toprol Xl] 12.5 mg PO DAILY #15 tablet 10/12/17 Lisinopril 1 tab PO 04/15/18 Cephalexin [Keflex] 500 mg PO Q6H #28 capsule 09/18/18 Sertraline HCl 100 mg PO 09/18/18 predniSONE [Prednisone] 40 mg PO DAILY #10 tablet 09/18/18 - Allergies Allergies/Adverse Reactions: Allergies Allergy/AdvReac Type Severity Reaction Status Date / Time No Known Drug Allergies Allergy Verified 04/15/18 07:59 - Social History Does the pt smoke?: No Smoking Status: Never smoker Does the pt drink ETOH?: No Does the pt have substance abuse?: No - Immunizations Immunizations are current?: Yes - POLST Patient has POLST: No POLST Status: Full Code PD ED PE NORMAL - Vitals Vital signs reviewed: Yes - General General: Alert and oriented X 3, No acute distress, Well developed/nourished - HEENT HEENT: Moist mucous membranes - Neck Neck: Supple, no meningeal sign - Cardiac Cardiac: RRR - Respiratory Respiratory: No respiratory distress, Clear bilaterally - Derm Derm: Warm and dry - Extremities Extremities: Other (Left upper arm just above the elbow, 4 x 4 centimeter area of erythema. No induration. No lymphangitis.) - Neuro Neuro: Alert and oriented X 3 - Psych Psych: Normal mood, Normal affect Results - Vitals Vitals: Vital Signs - 24 hr 09/18/18 08:58 Temperature 36.4 C L Heart Rate 73 Respiratory 18 Rate Blood Pressure 144/88 H O2 Saturation 100 Oxygen O2 Source Room air PD MEDICAL DECISION MAKING - ED course Complexity details: considered differential, d/w patient ED course: Patient with what appears to be localized allergic reaction. Mostly itching. Will trial on steroids first. If she fails to improve on steroids, will start the Keflex. Patient counseled regarding signs and symptoms for which I believe and urgent re-evaluation would be necessary. Patient with good understanding of and agreement to plan and is comfortable going home at this time This document was made in part using voice recognition software. While efforts are made to proofread this document, sound alike and grammatical errors may occur. Departure - Departure Disposition: 01 Home, Self Care Clinical Impression: Allergic reaction Qualifiers: Encounter type: initial encounter Qualified Code(s): T78.40XA - Allergy, unspecified, initial encounter Condition: Good Instructions: ED Bite Sting Insect Local Allergic React Follow-Up: NEVILLE HOUGH MD [Primary Care Provider] - Within 3 Days Prescriptions: Cephalexin [Keflex] 500 mg PO Q6H #28 capsule predniSONE [Prednisone] 40 mg PO DAILY #10 tablet Comments: Use the medication as prescribed. If you are not improving with steroids, start the antibiotics. Return if you worsen
== END 2018-09-18 09:17 | disposition home or self-care (01) ==
LOC: ED 08:47
DX: T78.40XA Allergy, unspecified, initial encounter (principal)
CPT/HCPCS: 99282; 99284

== ENCOUNTER 2019-08-24 13:11 | Emergency (ER) | payer OTHER ==
[2019-08-24 13:19] VITALS: BP 119/71
[2019-08-24] MEDS ORDERED: SODIUM CHLORIDE 0.9% 1,000 ML IV STA (14:16)
[2019-08-24] MEDS ORDERED: PROCHLORPERAZINE 10 MG/2 ML VIAL IVP STA (14:17)
--- NOTE | 2019-08-24 14:20 | ED Physician Documentation ---
History of Present Illness - Stated complaint Stated Complaint: HEAD PX - Chief complaint Chief Complaint: General - History obtained from History obtained from: Patient - History of Present Illness Timing: Prior to arrival, How many days ago (1) Pain level max: 7 Pain level now: 4 - Treatment prior to arrival Treatment prior to arrival: none - Additonal information Additional information: 24-year-old female presents to the emergency department with chief complaint of left-sided headache that began yesterday. Patient reports that it started in the left temporal area and wrapped around to the back of her head. She endorses some mild blurry vision. No vomiting. She is concerned because about 1 week ago she had a fell down her stairs in which she hit her head. She denies that there was any loss of consciousness or headache after the fall up until yesterday. This headache was not sudden onset. Patient does have a mild history of headaches that usually accompany periods or stress. She typically does not take any medication for them because she does not feel that it helps. Past medical history most significant for cardiomyopathy. 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 She denies dyspnea chest pain leg swelling Review of Systems Constitutional: denies: Fever, Chills, Fatigue, Weight Loss Eyes: reports: Other (blurry vision). denies: Loss of vision Ears: denies: Loss of hearing, Drainage/discharge Nose: denies: Rhinorrhea / runny nose Cardiac: denies: Chest pain / pressure, Palpitations, Pedal edema, Calf pain Respiratory: denies: Dyspnea, Cough, Wheezing GI: denies: Abdominal Pain, Nausea, Vomiting : denies: Dysuria, Frequency Skin: denies: Rash, Lesions Musculoskeletal: denies: Neck pain, Back pain Neurologic: reports: Headache. denies: Generalized weakness, Numbness, Difficulty speaking, Near syncope, Syncope, Seizure, Confused, Altered mental status, Head injury, LOC PD PAST MEDICAL HISTORY - Past Medical History Cardiovascular: Congestive heart failure Respiratory: None Endocrine/Autoimmune: None - Past Surgical History Past Surgical History: Yes General: Other - Present Medications Home Medications: Ambulatory Orders Medication Instructions Recorded Confirmed Metoprolol Succinate [Toprol Xl] 12.5 mg PO DAILY #15 tablet 10/12/17 lisinopriL [Lisinopril] 1 tab PO 04/15/18 Cephalexin [Keflex] 500 mg PO Q6H #28 capsule 09/18/18 Sertraline HCl 100 mg PO 09/18/18 predniSONE [Prednisone] 40 mg PO DAILY #10 tablet 09/18/18 - Allergies Allergies/Adverse Reactions: Allergies Allergy/AdvReac Type Severity Reaction Status Date / Time No Known Drug Allergies Allergy Verified 08/24/19 13:19 - Social History Does the pt smoke?: No Smoking Status: Never smoker Does the pt drink ETOH?: No Does the pt have substance abuse?: No - Immunizations Immunizations are current?: Yes - POLST Patient has POLST: No POLST Status: Full Code PD ED PE NORMAL - General General: Alert and oriented X 3, No acute distress, Well developed/nourished - HEENT HEENT: Atraumatic, PERRL, EOMI, Ears normal, Moist mucous membranes, Pharynx benign - Neck Neck: Supple, no meningeal sign, No bony TTP, No adenopathy - Cardiac Cardiac: RRR, No murmur - Respiratory Respiratory: No respiratory distress, Clear bilaterally - Abdomen Abdomen: Normal bowel sounds, Non tender - Derm Derm: Normal color, Warm and dry, No rash - Extremities Extremities: No deformity, No tenderness to palpate, Normal ROM s pain - Neuro Neuro: Alert and oriented X 3, frog shaker 2-12 intact, No motor deficit, No sensory deficit, Normal speech, Other (Normal gait. Normal [id number]. Normal rapid alternating movements.Normal cerebellar exam.) Eye Opening: Spontaneous Motor: Obeys Commands Verbal: Oriented GCS Score: 15 - Psych Psych: Normal mood, Normal affect Results - Vitals Vitals: Vital Signs - 24 hr 08/24/19 13:17 Temperature 36.0 C L Heart Rate 60 Respiratory 16 Rate Blood Pressure 119/71 O2 Saturation 100 Oxygen O2 Source Room air - Labs Labs: Laboratory Tests 08/24/19 08/24/19 14:21 14:41 HCG, Quant < 0.60 Urine Color YELLOW Urine Clarity CLEAR Urine pH 5.5 Ur Specific Deal 1.025 Urine Protein NEGATIVE Urine Glucose (UA) NEGATIVE Urine Ketones NEGATIVE Urine Occult Blood NEGATIVE Urine Nitrite NEGATIVE Urine Bilirubin NEGATIVE Urine Urobilinogen 0.2 (NORMAL) Ur Leukocyte Esterase NEGATIVE Ur Microscopic Review NOT INDICATED Urine Culture Comments NOT INDICATED PD MEDICAL DECISION MAKING - ED course Complexity details: reviewed results, re-evaluated patient, d/w patient ED course: 24-year-old female came to the emergency department with a left-sided parietal occipital headache that began yesterday afternoon. She was concerned because she fell down the stairs approximately 1 week ago. With this headache she had associated photophobia and some mild nausea. Reports a history of headaches in the past. - Here in the emergency department she was given 1 L of IV fluids Benadryl and Compazine with full resolution of the headache. Her urine is evaluated shows no signs of infection. She is not . Patient will be given 10 mg of Decadron prior to departure. - Patient does not meet CT imaging criteria. I have low suspicion for traumatic brain injury concerning the fall 1 week ago.In addition this patient headache was not sudden onset. And I have low suspicion for subarachnoid hemorrhage. She has no neck pain fevers or stiffness. Low suspicion for infectious etiology. - Patient will be discharged with recommendations for fluids and rest emergent return precautions discussed peer Departure - Departure Clinical Impression: Headache Qualifiers: Headache type: unspecified Headache chronicity pattern: acute headache Intractability: not intractable Qualified Code(s): R51 - Headache Condition: Stable Instructions: ED Headache Migraine Comments: Crissy, I am glad that your headache is better. Your urine looks normal there is no signs of infection. I think that you most likely are having a type of a migraine. When you go home make sure that you get plenty of rest and drink a lot of fluids. Return here if the headache is suddenly severe you have fevers or uncontrolled vomiting.
[2019-08-24 14:41] LABS: BILIRUBIN,URINE NEGATIVE (NEGATIVE); GLUCOSE, URINE (UA) NEGATIVE (NEGATIVE); KETONES,URINE (UA) NEGATIVE (NEGATIVE); LEUKOCYTE ESTERASE, URINE NEGATIVE (NEGATIVE); NITRITE,URINE NEGATIVE (NEGATIVE); OCCULT BLOOD,URINE NEGATIVE (NEGATIVE); PH,URINE 5.5 PH (5.0-7.5); PROTEIN,URINE NEGATIVE (NEGATIVE); UROBILINOGEN,URINE 0.2 (NORMAL) E.U./dL (NORMAL)
[2019-08-24 14:44] LABS: CLARITY,URINE CLEAR (CLEAR)
[2019-08-24] MEDS ORDERED: CHERRY SYRUP 10 ML UDC PO ONE (15:17)
[2019-08-24] MEDS ORDERED: DEXAMETHASONE 10 MG/ML VIAL PO STA (15:17)
== END 2019-08-24 15:30 | disposition home or self-care (01) ==
LOC: ED 13:11
DX: R51 Headache (principal); H53.149 Visual discomfort, unspecified; R11.0 Nausea; Z91.81 History of falling; I42.9 Cardiomyopathy, unspecified
CPT/HCPCS: 36415; 81003; 84702; 96361; 96374; 99283; 99284; A9270; 81001; 87086